=== PATIENT | female | born 1935 | race African-American/Black ===

== ENCOUNTER 2021-02-21 20:50 | Inpatient (IN) | payer MEDICARE ==
[~2021-02-21] VITALS: Ht 154.9 cm; Wt 48.0 kg
--- NOTE | 2021-02-21 21:33 | PHYS DOC ---
General Adult EDM: Chief Complaint: HYPERTENSION HPI: HPI: Patient is an 85-year-old female who presents to the emergency department for shortness of breath and hypertension that started today. Patient reports that she was placed on a Z-Gilson today for nasal drainage. Patient is a current smoker. She reports that she has received all of her Covid vaccines. Patient reports that the symptoms have been intermittent but have resolved over the last couple of days. Patient takes amlodipine and losartan but has not been taking them but did restart them today. Patient denies vomiting, diarrhea, cough, fevers, chest pain, sick exposures, headache, vision changes, dizziness. She does not wear oxygen at home. Upon arrival patient is 89% on room air, she is placed on supplemental oxygen. Patient is noted to be hypertensive and tachycardic in the emergency department. Review of Systems: Review of Systems: 14 body systems of the review of systems have been reviewed. See HPI for pertinent positive and negative responses, otherwise all other systems are negative, nonpertinent or noncontributory Heart Score: C/O Chest Pain: No Risk Factors: Risk Factors: DM, Current or recent (<one month) smoker, HTN, HLP, family history of CAD, obesity. Risk Scores: Score 0 - 3: 2.5% MACE over next 6 weeks - Discharge Home Score 4 - 6: 20.3% MACE over next 6 weeks - Admit for Clinical Observation Score 7 - 10: 72.7% MACE over next 6 weeks - Early Invasive Strategies Current Medications: Current Medications Medications (Trade) Dose Ordered Sig/Karishma Start Time Stop Time Status Last Admin Dose Admin Nitroglycerin/ Dextrose 250 ml @ 1.5 mls/hr 1X ONCE 02/21/21 22:00 02/28/21 20:39 Allergies: Allergies: Allergies Coded Allergies Type Severity Reaction Last Updated Verified No Known Drug Allergies 02/21/21 No Physical Exam: PE: Constitutional: Well developed, well nourished, no acute distress, non-toxic appearance. [] HENT: Normocephalic, atraumatic, bilateral external ears normal, oropharynx moist, no oral exudates, nose normal. [] Eyes: PERRL, EOMI, conjunctiva normal, no discharge. [] Neck: Normal range of motion, no tenderness, supple, no stridor. [] Cardiovascular:Heart rate tachycardic rhythm, no murmur [] Lungs & Thorax: Bilateral breath sounds clear to auscultation, hypoxic, labored breathing [] Abdomen: Bowel sounds normal, soft, no tenderness, no masses, no pulsatile masses. [] Skin: Warm, dry, no erythema, no rash. [] Back: Normal range of motion Extremities: No tenderness, no cyanosis, no clubbing, ROM intact, no edema. [] Neurologic: Alert and oriented X 3, normal motor function, normal sensory function, no focal deficits noted. [] Psychologic: Affect normal, judgement normal, mood normal. [] Current Patient Data: Labs: Laboratory Tests Test 02/21/21 21:17 White Blood Count 6.5 x10^3/uL Red Blood Count 4.39 x10^6/uL Hemoglobin 12.6 g/dL Hematocrit 39.3 % Mean Corpuscular Volume 90 fL Mean Corpuscular Hemoglobin 29 pg Mean Corpuscular Hemoglobin Concent 32 g/dL Red Cell Distribution Width 13.4 % Platelet Count 222 x10^3/uL Neutrophils (%) (Auto) 30 % Lymphocytes (%) (Auto) 60 % Monocytes (%) (Auto) 8 % Eosinophils (%) (Auto) 2 % Basophils (%) (Auto) 1 % Neutrophils # (Auto) 1.9 x10^3/uL Lymphocytes # (Auto) 3.9 x10^3/uL Monocytes # (Auto) 0.5 x10^3/uL Eosinophils # (Auto) 0.1 x10^3/uL Basophils # (Auto) 0.1 x10^3/uL Segmented Neutrophils % 30 % Lymphocytes % 62 % Atypical Lymphocytes % (Manual) 7 % Monocytes % 1 % Platelet Estimate Adequate Sodium Level 141 mmol/L Potassium Level 3.6 mmol/L Chloride Level 106 mmol/L Carbon Dioxide Level 21 mmol/L Anion Gap 14 Blood Urea Nitrogen 30 mg/dL Creatinine 2.6 mg/dL Estimated GFR (Cockcroft-Gault) 21.3 BUN/Creatinine Ratio 12 Glucose Level 140 mg/dL Calcium Level 9.1 mg/dL Total Bilirubin 0.5 mg/dL Aspartate Amino Transf (AST/SGOT) 24 U/L Alanine Aminotransferase (ALT/SGPT) 31 U/L Alkaline Phosphatase 119 U/L Troponin I High Sensitivity 80 ng/L Total Protein 7.8 g/dL Albumin 3.9 g/dL Albumin/Globulin Ratio 1.0 Current Medications Medications (Trade) Dose Ordered Sig/Karishma Route PRN Reason Start Time Stop Time Status Last Admin Dose Admin Nitroglycerin/ Dextrose 250 ml @ 1.5 mls/hr 1X ONCE IV 02/21/21 22:00 02/28/21 20:39 Nitroglycerin (Nitrostat) 0.4 mg STK-MED ONCE SL 02/21/21 21:34 02/21/21 21:34 DC Nitroglycerin (Nitrostat) 0.4 mg PRN Q5MIN PRN SL CHEST PAIN 02/21/21 22:00 02/21/21 20:40 EKG: EKG: EKG performed by ER staff at 2131 shows sinus tachycardia with a heart rate of 115 with PVCs, no STEMI read by Dr. Young 2139[] Radiology/Procedures: Radiology/Procedures: []PROCEDURE: PORTABLE CHEST 1V EXAMINATION: Chest radiograph. VIEWS: Single AP view of the chest COMPARISON: None INDICATION:85 years, Female, shortness of air. FINDINGS: Heart size is mildly enlarged. There are scattered and confluent predominantly middle and lower lobe airspace opacities with increased reticular markings. Trace bilateral pleural effusions. No pneumothorax. No acute osseous process. IMPRESSION: Findings may represent interstitial/alveolar pulmonary edema versus multifocal pneumonia with probable trace bilateral pleural effusions. Electronically signed by: Amarjit Conte DO (02/21/2021 10:10 PM) [facility] DICTATED and SIGNED BY: AMARJIT CONTE DO DATE: 02/21/21 [id number] 0 Course & Med Decision Making: Course & Med Decision Making Pertinent Labs and Imaging studies reviewed. (See chart for details) [] Patient presents to the emergency department for shortness of breath and elevated blood pressure in the ER. Patient is noted to be hypoxic in the ER, 89% on room air, she is placed on supplemental oxygen. She is noted to be hypertensive and tachycardic in the ER. Nitroglycerin infusion ordered for patient's hypertension. Work-up in the ER consisted of blood work, EKG, chest x-ray. CBC unremarkable. Patient was noted to have elevated BUN and creatinine. Her troponin was 80. Chest x-ray showed pulmonary edema versus pneumonia with trace pleural effusions. Patient was given sublingual nitroglycerin and started on a nitro infusion and to decrease patient's blood pressure by 25%. Patients blood pressure is reacting appropriately to nitroglycerin infusion and has become stabilized at this point. Patients work of breathing and tachycardia has improved. This is currently being titrated in the ER. Patient also placed on BiPAP. I discussed patient's findings with her and her son and they are both agreeable to care plan. I discussed patient's findings with her primary care provider Dr. Amanda who agreed to admit the patient under his services with cardiology and pulmonology consults. ER bridge orders placed. 1048. Tricia Disclaimer: Tricia Disclaimer: This electronic medical record was generated, in whole or in part, using a voice recognition dictation system. Departure Departure Impression: Primary Impression: Pulmonary edema Qualified Codes: J81.0 - Acute pulmonary edema Additional Impression: Hypertension Qualified Codes: I10 - Essential (primary) hypertension Disposition: 09 ADMITTED INPATIENT Admitting Physician: Cj Munoz Condition: STABLE JENNA OLIVARES [employer] Feb 21, 2021 21:33
[2021-02-21] MEDS ORDERED: NITROGLYCERIN SUBLINGUAL 0.4 MG BOTTLE OF 25. SL ONE (21:34)
[2021-02-21 21:39] LABS: BASO # 0.1 x10^3/uL (0.0-0.2); BASO % 1 % (0-3); EOS # 0.1 x10^3/uL (0.0-0.7); EOS % 2 % (0-3); HEMATOCRIT 39.3 % (36.0-47.0); HEMOGLOBIN 12.6 g/dL (12.0-15.5); LYMPH # 3.9 x10^3/uL (1.0-4.8); LYMPH % 60 % (24-48); MEAN CORPUSCULAR HEMOGLOBIN 29 pg (25-35); MEAN CORPUSCULAR HGB CONC 32 g/dL (31-37); MEAN CORPUSCULAR VOLUME 90 fL (79-100); MONO # 0.5 x10^3/uL (0.0-1.1); MONO % 8 % (0-9); NEUT # 1.9 x10^3/uL (1.8-7.7); NEUT % 30 % (31-73); PLATELET COUNT 222 x10^3/uL (140-400); RED BLOOD COUNT 4.39 x10^6/uL (3.50-5.40); RED CELL DISTRIBUTION WIDTH 13.4 % (11.5-14.5); WHITE BLOOD COUNT 6.5 x10^3/uL (4.0-11.0)
[2021-02-21 21:42] LABS: CALCIUM 9.1 mg/dL (8.5-10.1); CREATININE 2.6 mg/dL (0.6-1.0); GFR 21.3; POTASSIUM 3.6 mmol/L (3.5-5.1)
[2021-02-21 21:48] LABS: ALBUMIN 3.9 g/dL (3.4-5.0); TOTAL BILIRUBIN 0.5 mg/dL (0.2-1.0); TOTAL PROTEIN 7.8 g/dL (6.4-8.2)
[2021-02-21] MEDS ORDERED: NITROGLYCERIN SUBLINGUAL 0.4 MG BOTTLE OF 25. SL PRN (22:00)
[2021-02-21] MEDS ORDERED: NITROGLYCERIN PREMIX 250 ML IV ONE (22:00)
[2021-02-21 22:02] LABS: % ATYL 7 % (0-0); % LYMPHS 62 % (24-48); % MONOS 1 % (0-10); % SEGS 30 % (35-66); PLT ESTIMATE ADEQUATE (ADEQUATE)
--- NOTE | 2021-02-21 22:12 | RAD ---
EXAMINATION: Chest radiograph. VIEWS: Single AP view of the chest COMPARISON: None INDICATION:85 years, Female, shortness of air. FINDINGS: Heart size is mildly enlarged. There are scattered and confluent predominantly middle and lower lobe airspace opacities with increased reticular markings. Trace bilateral pleural effusions. No pneumotho rax. No acute osseous process. IMPRESSION: Findings may represent interstitial/alveolar pulmonary edema versus multifocal pneumonia with probabl e trace bilateral pleural effusions. Electronically signed by: Robbie Conte DO (02/21/2021 10:10 PM) COUNTS INCLUDE 234 BEDS AT THE [facility]
--- NOTE | 2021-02-21 22:16 | EKG ---
[facility] [address] [place] [address] Test Date: 2021-02-21 Test Time: 21:32:10 Pat Name: NORRIS ASHFORD Department: Room: Gender: F Manager Scheduling: : 1935 Requested By: JENNA OLIVARES Order Number: [id number] Reading MD: Aamir Larose Measurements Intervals [place] Rate: 115 P: 49 PA: 112 QRS: 24 QRSD: 80 T: 20 QT: 282 QTc: 392 Interpretive Statements SINUS TACHYCARDIA COMPLEX(ES) WITH ABERRANT INTRAVENTRICULAR CONDUCTION LEFT ATRIAL ABNORMALITY ST & T ABNORMALITY, CONSIDER ANTEROLATERAL ISCHEMIA OR LEFT VENTRICULAR STRAIN ABNORMAL ECG RI6.02 No previous ECG available for comparison Electronically Signed On 02-25-2021 9:25:22 KILN LOADER by Aamir Larose
[2021-02-22] VITALS (13 sets, daily range): BP systolic 92–175; BP diastolic 55–111
[2021-02-22 00:47] LABS: BILIRUBIN,URINE NEGATIVE (NEG); CLARITY,URINE CLEAR; COLOR,URINE YELLOW; NITRITE,URINE NEGATIVE (NEG); PH,URINE 5.5 (<5.0-8.0); PROTEIN,URINE >=300 mg/dL (NEG-TRACE)
[2021-02-22 00:54] LABS: BACTERIA,URINE FEW /HPF (0-FEW)
[2021-02-22] MEDS ORDERED: FUROSEMIDE 40 MG/4 ML VIAL. IVP ONE ×2 (02:15→08:00)
[2021-02-22 03:21] LABS: BASO # 0.1 x10^3/uL (0.0-0.2); BASO % 1 % (0-3); EOS % 1 % (0-3); HEMATOCRIT 39.4 % (36.0-47.0); HEMOGLOBIN 12.6 g/dL (12.0-15.5); LYMPH # 2.4 x10^3/uL (1.0-4.8); LYMPH % 37 % (24-48); MEAN CORPUSCULAR HEMOGLOBIN 29 pg (25-35); MEAN CORPUSCULAR HGB CONC 32 g/dL (31-37); MEAN CORPUSCULAR VOLUME 91 fL (79-100); MONO # 0.5 x10^3/uL (0.0-1.1); MONO % 8 % (0-9); NEUT # 3.6 x10^3/uL (1.8-7.7); NEUT % 54 % (31-73); PLATELET COUNT 201 x10^3/uL (140-400); RED BLOOD COUNT 4.34 x10^6/uL (3.50-5.40); RED CELL DISTRIBUTION WIDTH 13.9 % (11.5-14.5); WHITE BLOOD COUNT 6.6 x10^3/uL (4.0-11.0)
[2021-02-22 03:43] LABS: ALBUMIN 3.5 g/dL (3.4-5.0); ALBUMIN/GLOBULIN RATIO 0.9 (1.0-1.7); CREATININE 2.3 mg/dL (0.6-1.0); GFR 24.5; POTASSIUM 3.9 mmol/L (3.5-5.1); TOTAL BILIRUBIN 0.5 mg/dL (0.2-1.0); TOTAL PROTEIN 7.3 g/dL (6.4-8.2)
--- NOTE | 2021-02-22 08:02 | PDOC2 ---
MINOO GARCIA FREIGHT ADJUSTER 02/22/21 0802: CARDIAC CONSULT DATE OF CONSULT Date of Consult DATE: 02/22/21 TIME: 07:42 REASON FOR CONSULT Reason for Consult: Pulmonary edema, HTN REFERRING PHYSICIAN Referring Physician: Tremayne SOURCE Source: Chart review, Patient HISTORY OF PRESENT ILLNESS HISTORY OF PRESENT ILLNESS This is a pleasant 85 yo female admitted for complains of SOA. and high BP. She noted her SBP in the 200s at home. She has not been taking her 2 BP meds namely losartan and norvasc daily since her daughter from [place] 3 months ago. She is depress but no suicidal ideation and doink OK but still has moments of grief. No chest pain. She has been SOA and more with exertion in the last 3 d ays. Denies any nausea, vomiting, DOMINGUEZ or any visual disturbances. She does have occasional palpitations but no hx of CAD, arrhythmias. VTE, CVA. She does not take ASA. No leg edema. PAST MEDICAL HISTORY Cardiovascular: HTN Pulmonary: No pertinent hx CENTRAL NERVOUS SYSTEM: Other (No pertinent history) GI: No pertinent hx Heme/Onc: No pertinent hx Hepatobiliary: No pertinent hx Psych: No pertinent hx Musculoskeletal: Osteoarthritis Infectious disease: No pertinent hx ENT: No pertinent hx Renal/: Chronic renal insuff Endocrine: No pertinent hx Dermatology: No pertinent hx PAST SURGICAL HISTORY Past Surgical History: No pertinent history FAMILY HISTORY Family History: Heart Disease (sister) SOCIAL HISTORY Smoke: <1 pack per day ALCOHOL: none Drugs: None Lives: with Family CURRENT MEDICATIONS CURRENT MEDICATIONS Current Medications Medications (Trade) Dose Ordered Sig/Karishma Route PRN Reason Start Time Stop Time Status Last Admin Dose Admin Nitroglycerin (Nitrostat) 0.4 mg PRN Q5MIN PRN SL CHEST PAIN 02/21/21 22:00 02/21/21 20:40 Furosemide (Lasix) 40 mg 1X ONCE IVP 02/22/21 02:15 02/22/21 02:16 DC 02/22/21 02:12 Amlodipine Besylate (Norvasc) 5 mg 1X ONCE PO 02/22/21 02:15 02/22/21 02:16 DC 02/22/21 02:13 Amlodipine Besylate (Norvasc) 5 mg DAILY PO 02/22/21 09:00 02/22/21 07:38 Amlodipine Besylate (Norvasc) 5 mg 1X ONCE PO 02/22/21 04:00 02/22/21 04:02 DC 02/22/21 03:58 ALLERGIES ALLERGIES: Coded Allergies: No Known Drug Allergies (Unverified , 02/21/21) ROS Review of System 14 point ROS evaluated with pertinent positives noted per HPI PHYSICAL EXAM General: Alert, Oriented X3, Cooperative, No acute distress HEENT: Atraumatic, Mucous membr. moist/pink Lungs: Other (diminished bases) Heart: Regular rate (SR/ST with PVCs), Normal S1, Normal S2, No murmurs Abdomen: Soft, No tenderness Extremities: No cyanosis, No edema Skin: No breakdown, No significant lesion Neuro: Normal speech, Sensation intact Psych/Mental Status: Mental status NL, Mood NL MUSCULOSKELETAL: Osteoarthritic changes both hands VITALS/I&O VITALS/I&O: Vital Signs Date Time Temp Pulse Resp B/P (MAP) Pulse Ox O2 Delivery O2 Flow Rate FiO2 02/22/21 07:38 94 160/100 02/22/21 07:00 15 95 Nasal Cannula 2.0 02/22/21 04:00 98.1 98.1 I & O 02/21/21 02/21/21 02/22/21 15:00 23:00 07:00 Output Total 360 ml Balance -360 ml LABS Lab: Laboratory Tests Test 02/21/21 21:17 02/22/21 00:40 02/22/21 03:05 White Blood Count 6.5 x10^3/uL (4.0-11.0) 6.6 x10^3/uL (4.0-11.0) Red Blood Count 4.39 x10^6/uL (3.50-5.40) 4.34 x10^6/uL (3.50-5.40) Hemoglobin 12.6 g/dL (12.0-15.5) 12.6 g/dL (12.0-15.5) Hematocrit 39.3 % (36.0-47.0) 39.4 % (36.0-47.0) Mean Corpuscular Volume 90 fL (79-100) 91 fL (79-100) Mean Corpuscular Hemoglobin 29 pg (25-35) 29 pg (25-35) Mean Corpuscular Hemoglobin Concent 32 g/dL (31-37) 32 g/dL (31-37) Red Cell Distribution Width 13.4 % (11.5-14.5) 13.9 % (11.5-14.5) Platelet Count 222 x10^3/uL (140-400) 201 x10^3/uL (140-400) Neutrophils (%) (Auto) 30 % (31-73) L 54 % (31-73) Lymphocytes (%) (Auto) 60 % (24-48) H 37 % (24-48) Monocytes (%) (Auto) 8 % (0-9) 8 % (0-9) Eosinophils (%) (Auto) 2 % (0-3) 1 % (0-3) Basophils (%) (Auto) 1 % (0-3) 1 % (0-3) Neutrophils # (Auto) 1.9 x10^3/uL (1.8-7.7) 3.6 x10^3/uL (1.8-7.7) Lymphocytes # (Auto) 3.9 x10^3/uL (1.0-4.8) 2.4 x10^3/uL (1.0-4.8) Monocytes # (Auto) 0.5 x10^3/uL (0.0-1.1) 0.5 x10^3/uL (0.0-1.1) Eosinophils # (Auto) 0.1 x10^3/uL (0.0-0.7) 0.0 x10^3/uL (0.0-0.7) Basophils # (Auto) 0.1 x10^3/uL (0.0-0.2) 0.1 x10^3/uL (0.0-0.2) Segmented Neutrophils % 30 % (35-66) L Lymphocytes % 62 % (24-48) H Atypical Lymphocytes % (Manual) 7 % (0-0) H Monocytes % 1 % (0-10) Platelet Estimate Adequate (ADEQUATE) Sodium Level 141 mmol/L (136-145) 142 mmol/L (136-145) Potassium Level 3.6 mmol/L (3.5-5.1) 3.9 mmol/L (3.5-5.1) Chloride Level 106 mmol/L (98-107) 107 mmol/L (98-107) Carbon Dioxide Level 21 mmol/L (21-32) 20 mmol/L (21-32) L Anion Gap 14 (6-14) 15 (6-14) H Blood Urea Nitrogen 30 mg/dL (7-20) H 28 mg/dL (7-20) H Creatinine 2.6 mg/dL (0.6-1.0) H 2.3 mg/dL (0.6-1.0) H Estimated GFR (Cockcroft-Gault) 21.3 24.5 BUN/Creatinine Ratio 12 (6-20) 12 (6-20) Glucose Level 140 mg/dL (70-99) H 126 mg/dL (70-99) H Calcium Level 9.1 mg/dL (8.5-10.1) 9.0 mg/dL (8.5-10.1) Total Bilirubin 0.5 mg/dL (0.2-1.0) 0.5 mg/dL (0.2-1.0) Aspartate Amino Transferase (AST) 24 U/L (15-37) 24 U/L (15-37) Alanine Aminotransferase (ALT) 31 U/L (14-59) 24 U/L (14-59) Alkaline Phosphatase 119 U/L (46-116) H 109 U/L (46-116) Troponin I High Sensitivity 80 ng/L (4-50) H XC-Csa-K-Type Natriuretic Peptide 63860 pg/mL (0-449) H Total Protein 7.8 g/dL (6.4-8.2) 7.3 g/dL (6.4-8.2) Albumin 3.9 g/dL (3.4-5.0) 3.5 g/dL (3.4-5.0) Albumin/Globulin Ratio 1.0 (1.0-1.7) 0.9 (1.0-1.7) L Urine Collection Type Unknown Urine Color Yellow Urine Clarity Clear Urine pH 5.5 (<5.0-8.0) Urine Specific [place] 1.020 (1.000-1.030) Urine Protein >=300 mg/dL (NEG-TRACE) Urine Glucose (UA) Negative mg/dL (NEG) Urine Ketones (Stick) Negative mg/dL (NEG) Urine Blood Small (NEG) Urine Nitrite Negative (NEG) Urine Bilirubin Negative (NEG) Urine Urobilinogen Dipstick 1.0 mg/dL (0.2 mg/dL) Urine Leukocyte Esterase Small (NEG) Urine RBC 1-2 /HPF (0-2) Urine WBC 5-10 /HPF (0-4) Urine Squamous Epithelial Cells Mod /LPF Urine Bacteria Few /HPF (0-FEW) Urine Mucus Slight /LPF Laboratory Tests 02/21/21 21:17 02/22/21 03:05 Laboratory Tests 02/21/21 21:17 02/22/21 03:05 ASSESSMENT/PLAN ASSESSMENT/PLAN 1. Acute CHF with possible diastolic dysfunction: due to uncontrolled HTN 2. Malignant HTN 3. RAMON on CKD: unknown baseline 4. Depression: per PCP 5. Tobaccoism 6. Mild trop elevation: suspect demand mediated, type 2 due to CHF and HTN 7. PVCs Recommendations 1. Titrate off NTG. Start on norvasc and coreg. No losartan with RAMON 2. Start on ASA. Check FLP and will start statin per level 3. Lasix therapy 4. TTE, check Mg and TSH 5. Smoking cessation UMA CRISOSTOMO MD 02/22/21 1632: CARDIAC CONSULT ASSESSMENT/PLAN ASSESSMENT/PLAN Patient seen and examined. Agree with above nurse practitioner note. 85-year-old woman presenting with cardiomyopathy and acute on chronic systolic and diastolic heart failure Case discussed with her family extensively. We will plan for continued medical therapy in light of her renal failure. Outpatient ischemic testing with consideration of cardiac catheterization based on goals of care and recovery of LV function with medical therapy MINOO GARCIA APRN Feb 22, 2021 08:02 UMA CRISOSTOMO MD Feb 22, 2021 16:32
--- NOTE | 2021-02-22 08:15 | PDOC ---
PULMONARY PROGRESS NOTES DATE: 02/22/21 TIME: 08:15 Vitals Vital Signs Date Time Temp Pulse Resp B/P (MAP) Pulse Ox O2 Delivery O2 Flow Rate FiO2 02/22/21 08:00 Nasal Cannula 2.0 02/22/21 07:38 94 160/100 02/22/21 07:00 15 95 02/22/21 04:00 98.1 98.1 Labs Laboratory Tests Test 02/21/21 21:17 02/22/21 00:40 02/22/21 03:05 White Blood Count 6.5 x10^3/uL (4.0-11.0) 6.6 x10^3/uL (4.0-11.0) Red Blood Count 4.39 x10^6/uL (3.50-5.40) 4.34 x10^6/uL (3.50-5.40) Hemoglobin 12.6 g/dL (12.0-15.5) 12.6 g/dL (12.0-15.5) Hematocrit 39.3 % (36.0-47.0) 39.4 % (36.0-47.0) Mean Corpuscular Volume 90 fL (79-100) 91 fL (79-100) Mean Corpuscular Hemoglobin 29 pg (25-35) 29 pg (25-35) Mean Corpuscular Hemoglobin Concent 32 g/dL (31-37) 32 g/dL (31-37) Red Cell Distribution Width 13.4 % (11.5-14.5) 13.9 % (11.5-14.5) Platelet Count 222 x10^3/uL (140-400) 201 x10^3/uL (140-400) Neutrophils (%) (Auto) 30 % (31-73) 54 % (31-73) Lymphocytes (%) (Auto) 60 % (24-48) 37 % (24-48) Monocytes (%) (Auto) 8 % (0-9) 8 % (0-9) Eosinophils (%) (Auto) 2 % (0-3) 1 % (0-3) Basophils (%) (Auto) 1 % (0-3) 1 % (0-3) Neutrophils # (Auto) 1.9 x10^3/uL (1.8-7.7) 3.6 x10^3/uL (1.8-7.7) Lymphocytes # (Auto) 3.9 x10^3/uL (1.0-4.8) 2.4 x10^3/uL (1.0-4.8) Monocytes # (Auto) 0.5 x10^3/uL (0.0-1.1) 0.5 x10^3/uL (0.0-1.1) Eosinophils # (Auto) 0.1 x10^3/uL (0.0-0.7) 0.0 x10^3/uL (0.0-0.7) Basophils # (Auto) 0.1 x10^3/uL (0.0-0.2) 0.1 x10^3/uL (0.0-0.2) Segmented Neutrophils % 30 % (35-66) Lymphocytes % 62 % (24-48) Atypical Lymphocytes % (Manual) 7 % (0-0) Monocytes % 1 % (0-10) Platelet Estimate Adequate (ADEQUATE) Sodium Level 141 mmol/L (136-145) 142 mmol/L (136-145) Potassium Level 3.6 mmol/L (3.5-5.1) 3.9 mmol/L (3.5-5.1) Chloride Level 106 mmol/L (98-107) 107 mmol/L (98-107) Carbon Dioxide Level 21 mmol/L (21-32) 20 mmol/L (21-32) Anion Gap 14 (6-14) 15 (6-14) Blood Urea Nitrogen 30 mg/dL (7-20) 28 mg/dL (7-20) Creatinine 2.6 mg/dL (0.6-1.0) 2.3 mg/dL (0.6-1.0) Estimated GFR (Cockcroft-Gault) 21.3 24.5 BUN/Creatinine Ratio 12 (6-20) 12 (6-20) Glucose Level 140 mg/dL (70-99) 126 mg/dL (70-99) Calcium Level 9.1 mg/dL (8.5-10.1) 9.0 mg/dL (8.5-10.1) Total Bilirubin 0.5 mg/dL (0.2-1.0) 0.5 mg/dL (0.2-1.0) Aspartate Amino Transf (AST/SGOT) 24 U/L (15-37) 24 U/L (15-37) Alanine Aminotransferase (ALT/SGPT) 31 U/L (14-59) 24 U/L (14-59) Alkaline Phosphatase 119 U/L (46-116) 109 U/L (46-116) Troponin I High Sensitivity 80 ng/L (4-50) ED-Imr-F-Type Natriuretic Peptide 31163 pg/mL (0-449) Total Protein 7.8 g/dL (6.4-8.2) 7.3 g/dL (6.4-8.2) Albumin 3.9 g/dL (3.4-5.0) 3.5 g/dL (3.4-5.0) Albumin/Globulin Ratio 1.0 (1.0-1.7) 0.9 (1.0-1.7) Urine Collection Type Unknown Urine Color Yellow Urine Clarity Clear Urine pH 5.5 (<5.0-8.0) Urine Specific [place] 1.020 (1.000-1.030) Urine Protein >=300 mg/dL (NEG-TRACE) Urine Glucose (UA) Negative mg/dL (NEG) Urine Ketones (Stick) Negative mg/dL (NEG) Urine Blood Small (NEG) Urine Nitrite Negative (NEG) Urine Bilirubin Negative (NEG) Urine Urobilinogen Dipstick 1.0 mg/dL (0.2 mg/dL) Urine Leukocyte Esterase Small (NEG) Urine RBC 1-2 /HPF (0-2) Urine WBC 5-10 /HPF (0-4) Urine Squamous Epithelial Cells Mod /LPF Urine Bacteria Few /HPF (0-FEW) Urine Mucus Slight /LPF Laboratory Tests Test 02/21/21 21:17 02/22/21 00:40 02/22/21 03:05 White Blood Count 6.5 x10^3/uL (4.0-11.0) 6.6 x10^3/uL (4.0-11.0) Red Blood Count 4.39 x10^6/uL (3.50-5.40) 4.34 x10^6/uL (3.50-5.40) Hemoglobin 12.6 g/dL (12.0-15.5) 12.6 g/dL (12.0-15.5) Hematocrit 39.3 % (36.0-47.0) 39.4 % (36.0-47.0) Mean Corpuscular Volume 90 fL (79-100) 91 fL (79-100) Mean Corpuscular Hemoglobin 29 pg (25-35) 29 pg (25-35) Mean Corpuscular Hemoglobin Concent 32 g/dL (31-37) 32 g/dL (31-37) Red Cell Distribution Width 13.4 % (11.5-14.5) 13.9 % (11.5-14.5) Platelet Count 222 x10^3/uL (140-400) 201 x10^3/uL (140-400) Neutrophils (%) (Auto) 30 % (31-73) 54 % (31-73) Lymphocytes (%) (Auto) 60 % (24-48) 37 % (24-48) Monocytes (%) (Auto) 8 % (0-9) 8 % (0-9) Eosinophils (%) (Auto) 2 % (0-3) 1 % (0-3) Basophils (%) (Auto) 1 % (0-3) 1 % (0-3) Neutrophils # (Auto) 1.9 x10^3/uL (1.8-7.7) 3.6 x10^3/uL (1.8-7.7) Lymphocytes # (Auto) 3.9 x10^3/uL (1.0-4.8) 2.4 x10^3/uL (1.0-4.8) Monocytes # (Auto) 0.5 x10^3/uL (0.0-1.1) 0.5 x10^3/uL (0.0-1.1) Eosinophils # (Auto) 0.1 x10^3/uL (0.0-0.7) 0.0 x10^3/uL (0.0-0.7) Basophils # (Auto) 0.1 x10^3/uL (0.0-0.2) 0.1 x10^3/uL (0.0-0.2) Segmented Neutrophils % 30 % (35-66) Lymphocytes % 62 % (24-48) Atypical Lymphocytes % (Manual) 7 % (0-0) Monocytes % 1 % (0-10) Platelet Estimate Adequate (ADEQUATE) Sodium Level 141 mmol/L (136-145) 142 mmol/L (136-145) Potassium Level 3.6 mmol/L (3.5-5.1) 3.9 mmol/L (3.5-5.1) Chloride Level 106 mmol/L (98-107) 107 mmol/L (98-107) Carbon Dioxide Level 21 mmol/L (21-32) 20 mmol/L (21-32) Anion Gap 14 (6-14) 15 (6-14) Blood Urea Nitrogen 30 mg/dL (7-20) 28 mg/dL (7-20) Creatinine 2.6 mg/dL (0.6-1.0) 2.3 mg/dL (0.6-1.0) Estimated GFR (Cockcroft-Gault) 21.3 24.5 BUN/Creatinine Ratio 12 (6-20) 12 (6-20) Glucose Level 140 mg/dL (70-99) 126 mg/dL (70-99) Calcium Level 9.1 mg/dL (8.5-10.1) 9.0 mg/dL (8.5-10.1) Total Bilirubin 0.5 mg/dL (0.2-1.0) 0.5 mg/dL (0.2-1.0) Aspartate Amino Transf (AST/SGOT) 24 U/L (15-37) 24 U/L (15-37) Alanine Aminotransferase (ALT/SGPT) 31 U/L (14-59) 24 U/L (14-59) Alkaline Phosphatase 119 U/L (46-116) 109 U/L (46-116) Troponin I High Sensitivity 80 ng/L (4-50) HQ-Qtn-H-Type Natriuretic Peptide 61974 pg/mL (0-449) Total Protein 7.8 g/dL (6.4-8.2) 7.3 g/dL (6.4-8.2) Albumin 3.9 g/dL (3.4-5.0) 3.5 g/dL (3.4-5.0) Albumin/Globulin Ratio 1.0 (1.0-1.7) 0.9 (1.0-1.7) Urine Collection Type Unknown Urine Color Yellow Urine Clarity Clear Urine pH 5.5 (<5.0-8.0) Urine Specific [place] 1.020 (1.000-1.030) Urine Protein >=300 mg/dL (NEG-TRACE) Urine Glucose (UA) Negative mg/dL (NEG) Urine Ketones (Stick) Negative mg/dL (NEG) Urine Blood Small (NEG) Urine Nitrite Negative (NEG) Urine Bilirubin Negative (NEG) Urine Urobilinogen Dipstick 1.0 mg/dL (0.2 mg/dL) Urine Leukocyte Esterase Small (NEG) Urine RBC 1-2 /HPF (0-2) Urine WBC 5-10 /HPF (0-4) Urine Squamous Epithelial Cells Mod /LPF Urine Bacteria Few /HPF (0-FEW) Urine Mucus Slight /LPF Impression . Full consult dictated Acute hypoxemic respiratory failure secondary to acute pulmonary edema secondary to uncontrolled hypertension Tobacco dependent Depression COPD plan see orders CARLOS NEWELL MD Feb 22, 2021 08:15
[2021-02-22] MEDS: ASPIRIN ENTERIC COATED 81 MG TABLET.DR. PO SCH (08:29)
[2021-02-22] MEDS: CARVEDILOL 6.25 MG TABLET. PO SCH ×2 (08:29→18:18)
[2021-02-22 08:35] LABS: CHOLESTEROL/HDL RATIO 2.8
--- NOTE | 2021-02-22 09:22 | EKG ---
[facility] [address] [place] [address] Test Date: 2021-02-22 Test Time: 09:20:39 Pat Name: NORRIS ASHFORD Department: Room: 111 1 Gender: F Cytopathology Technologist: CATHI : [id number] Requested By: MINOO GARCIA Order Number: [id number] Reading MD: Aamir Larose Measurements Intervals Hazel Rate: 98 P: 48 AL: 108 QRS: 9 QRSD: 86 T: -66 QT: 392 QTc: 503 Interpretive Statements SINUS RHYTHM VENTRICULAR PREMATURE COMPLEX(ES), TRIGEMINY LEFT ATRIAL ABNORMALITY T ABNORMALITY IN ANTERIOR LEADS INFEROLATERAL LEADS PROLONGED QT ABNORMAL ECG RI6.02 Electronically Signed On 02-25-2021 9:23:03 [employer] by Aamir Larose
--- NOTE | 2021-02-22 09:27 | PDOC ---
Provider Note Date of Service: DATE: 02/22/21 TIME: 09:26 Provider Note Pt seen ICU .#[id number]. Justifications for Admission Other Justification YARELI ARCE MD Feb 22, 2021 09:27
--- NOTE | 2021-02-22 09:49 | PDOC2 ---
CONSULT Date of Consult Date of Consult DATE: 02/22/21 TIME: 09:42 Reason for Consult Reason for Consult: RAMON on CKD Identification/Chief Complaint Chief Complaint Denies any complaints at present Source Source: Chart review History of Present Illness Reason for Visit: 85 yo AA female admitted for complains of SOA. and high BP. She noted her SBP in the 200s at home. She has not been taking her 2 BP meds namely losartan and norvasc daily. She reportsher BP used to be well controlled but have been high since her daughter from [place] 3 months ago. Denies any chest pain, she has been short of breath - more with exertion in the last 3 days. Denies any nausea, vomiting, DOMINGUEZ or any visual disturbances. Denies any F/C. No N/V/D. No abdominal pain. No Cough. Denies any urinary complaints, No dysuria, reports Good UOP. Denies any LE edema . Denies use of NSAID's or any OTC supplements. She reports for past 3 months - her PCP Dr. Munoz has been adjusting er BP meds . She has been on losartan on and off . She has been on diurtics as well but cannot recall the time line . She states she is not aware of abnormal Kidney function and doesn't recall being referred to nephrology for OP appt Past Medical History Cardiovascular: HTN Pulmonary: No pertinent hx CENTRAL NERVOUS SYSTEM: Other (No pertinent history) GI: No pertinent hx Heme/Onc: No pertinent hx Hepatobiliary: No pertinent hx Psych: No pertinent hx Musculoskeletal: Osteoarthritis Infectious disease: No pertinent hx ENT: No pertinent hx Renal/: Chronic renal insuff Endocrine: No pertinent hx Dermatology: No pertinent hx Past Surgical History Past Surgical History: No pertinent history Family History Family History: Heart Disease (sister) Social History <1 pack per day ALCOHOL: none Drugs: None Lives: with Family Current Problem List Problem List Problems Medical Problems: (1) Hypertension Status: Acute (2) Pulmonary edema Status: Acute Current Medications Current Medications Current Medications Nitroglycerin/ Dextrose 250 ml @ 1.5 mls/hr 1X ONCE IV ; Start 02/21/21 at 22:00; Stop 02/28/21 at 20:39 Nitroglycerin (Nitrostat) 0.4 mg STK-MED ONCE SL ; Start 02/21/21 at 21:34; Stop 02/21/21 at 21:34; Status DC Nitroglycerin (Nitrostat) 0.4 mg PRN Q5MIN PRN SL CHEST PAIN Last administered on 02/21/21at 20:40; Start 02/21/21 at 22:00 Furosemide (Lasix) 40 mg 1X ONCE IVP Last administered on 02/22/21at 02:12; Start 02/22/21 at 02:15; Stop 02/22/21 at 02:16; Status DC Amlodipine Besylate (Norvasc) 5 mg 1X ONCE PO Last administered on 02/22/21at 02:13; Start 02/22/21 at 02:15; Stop 02/22/21 at 02:16; Status DC Amlodipine Besylate (Norvasc) 5 mg DAILY PO Last administered on 02/22/21at 07:38; Start 02/22/21 at 09:00; Stop 02/22/21 at 08:09; Status DC Amlodipine Besylate (Norvasc) 5 mg 1X ONCE PO Last administered on 02/22/21at 03:58; Start 02/22/21 at 04:00; Stop 02/22/21 at 04:02; Status DC Furosemide (Lasix) 40 mg 1X ONCE IVP Last administered on 02/22/21at 08:30; Start 02/22/21 at 08:00; Stop 02/22/21 at 08:01; Status DC Aspirin (Ecotrin) 81 mg DAILYWBKFT PO Last administered on 02/22/21at 08:29; Start 02/22/21 at 08:00 Amlodipine Besylate (Norvasc) 5 mg 1X ONCE PO Last administered on 02/22/21at 08:29; Start 02/22/21 at 08:00; Stop 02/22/21 at 08:01; Status DC Amlodipine Besylate (Norvasc) 10 mg DAILY PO ; Start 02/23/21 at 09:00 Carvedilol (Coreg) 6.25 mg BIDWMEALS PO Last administered on 02/22/21at 08:29; Start 02/22/21 at 08:00 Atorvastatin Calcium (Lipitor) 20 mg QHS PO ; Start 02/22/21 at 21:00 Heparin Sodium (Porcine) (Heparin Sodium) 5,000 unit Q12HR SQ ; Start 02/22/21 at 09:15 Allergies Allergies: Coded Allergies: No Known Drug Allergies (Unverified , 02/21/21) ROS Review of System As per HPI, rest of the ROS is negative Physical Exam Physical Exam General: No acute distress HEENT: Atraumatic, Mucous membr. moist/pink Neck Supple Lungs: Other (diminished bases), Non labored Heart: Regular rate (SR/ST with PVCs), Normal S1, Normal S2, No murmurs Abdomen: Soft, No tenderness Extremities: No cyanosis, No edema Skin: No breakdown, No significant lesion Neuro: Normal speech, Sensation intact, Alert, Oriented X3, Cooperative, Psych/Mental Status: Mental status NL, Mood NL No gil, No CVA or SP tenderness Vital Signs Vital Signs Date Time Temp Pulse Resp B/P (MAP) Pulse Ox O2 Delivery O2 Flow Rate FiO2 02/22/21 09:00 97 11 162/111 (128) 97 Nasal Cannula 2.0 02/22/21 08:00 98.6 98.6 Assessment & Plan RAMON on CKD- Suspect cardiorenal , Non Oliguric,Recd IV Furosemide . UA unremarkable except overt proteinuria Creatinine trending down, E-Lytes stable, Currently no emergent indication for dialysis. Supportive care , Strict I/O , agree with Holding ARB CKD - Per Dr. Munoz- baseline Creat 1.8-2.0. Acute CHF with possible diastolic dysfunction: due to uncontrolled HTN- cardiology managing Malignant HTN- defer to cardiology Tobaccoism PVCs Labs Labs Laboratory Tests Test 02/21/21 21:17 02/22/21 00:40 02/22/21 03:05 White Blood Count 6.5 x10^3/uL (4.0-11.0) 6.6 x10^3/uL (4.0-11.0) Red Blood Count 4.39 x10^6/uL (3.50-5.40) 4.34 x10^6/uL (3.50-5.40) Hemoglobin 12.6 g/dL (12.0-15.5) 12.6 g/dL (12.0-15.5) Hematocrit 39.3 % (36.0-47.0) 39.4 % (36.0-47.0) Mean Corpuscular Volume 90 fL (79-100) 91 fL (79-100) Mean Corpuscular Hemoglobin 29 pg (25-35) 29 pg (25-35) Mean Corpuscular Hemoglobin Concent 32 g/dL (31-37) 32 g/dL (31-37) Red Cell Distribution Width 13.4 % (11.5-14.5) 13.9 % (11.5-14.5) Platelet Count 222 x10^3/uL (140-400) 201 x10^3/uL (140-400) Neutrophils (%) (Auto) 30 % (31-73) 54 % (31-73) Lymphocytes (%) (Auto) 60 % (24-48) 37 % (24-48) Monocytes (%) (Auto) 8 % (0-9) 8 % (0-9) Eosinophils (%) (Auto) 2 % (0-3) 1 % (0-3) Basophils (%) (Auto) 1 % (0-3) 1 % (0-3) Neutrophils # (Auto) 1.9 x10^3/uL (1.8-7.7) 3.6 x10^3/uL (1.8-7.7) Lymphocytes # (Auto) 3.9 x10^3/uL (1.0-4.8) 2.4 x10^3/uL (1.0-4.8) Monocytes # (Auto) 0.5 x10^3/uL (0.0-1.1) 0.5 x10^3/uL (0.0-1.1) Eosinophils # (Auto) 0.1 x10^3/uL (0.0-0.7) 0.0 x10^3/uL (0.0-0.7) Basophils # (Auto) 0.1 x10^3/uL (0.0-0.2) 0.1 x10^3/uL (0.0-0.2) Segmented Neutrophils % 30 % (35-66) Lymphocytes % 62 % (24-48) Atypical Lymphocytes % (Manual) 7 % (0-0) Monocytes % 1 % (0-10) Platelet Estimate Adequate (ADEQUATE) Sodium Level 141 mmol/L (136-145) 142 mmol/L (136-145) Potassium Level 3.6 mmol/L (3.5-5.1) 3.9 mmol/L (3.5-5.1) Chloride Level 106 mmol/L (98-107) 107 mmol/L (98-107) Carbon Dioxide Level 21 mmol/L (21-32) 20 mmol/L (21-32) Anion Gap 14 (6-14) 15 (6-14) Blood Urea Nitrogen 30 mg/dL (7-20) 28 mg/dL (7-20) Creatinine 2.6 mg/dL (0.6-1.0) 2.3 mg/dL (0.6-1.0) Estimated GFR (Cockcroft-Gault) 21.3 24.5 BUN/Creatinine Ratio 12 (6-20) 12 (6-20) Glucose Level 140 mg/dL (70-99) 126 mg/dL (70-99) Calcium Level 9.1 mg/dL (8.5-10.1) 9.0 mg/dL (8.5-10.1) Total Bilirubin 0.5 mg/dL (0.2-1.0) 0.5 mg/dL (0.2-1.0) Aspartate Amino Transf (AST/SGOT) 24 U/L (15-37) 24 U/L (15-37) Alanine Aminotransferase (ALT/SGPT) 31 U/L (14-59) 24 U/L (14-59) Alkaline Phosphatase 119 U/L (46-116) 109 U/L (46-116) Troponin I High Sensitivity 80 ng/L (4-50) 587 ng/L (4-50) EV-Qle-V-Type Natriuretic Peptide 34854 pg/mL (0-449) Total Protein 7.8 g/dL (6.4-8.2) 7.3 g/dL (6.4-8.2) Albumin 3.9 g/dL (3.4-5.0) 3.5 g/dL (3.4-5.0) Albumin/Globulin Ratio 1.0 (1.0-1.7) 0.9 (1.0-1.7) Urine Collection Type Unknown Urine Color Yellow Urine Clarity Clear Urine pH 5.5 (<5.0-8.0) Urine Specific [place] 1.020 (1.000-1.030) Urine Protein >=300 mg/dL (NEG-TRACE) Urine Glucose (UA) Negative mg/dL (NEG) Urine Ketones (Stick) Negative mg/dL (NEG) Urine Blood Small (NEG) Urine Nitrite Negative (NEG) Urine Bilirubin Negative (NEG) Urine Urobilinogen Dipstick 1.0 mg/dL (0.2 mg/dL) Urine Leukocyte Esterase Small (NEG) Urine RBC 1-2 /HPF (0-2) Urine WBC 5-10 /HPF (0-4) Urine Squamous Epithelial Cells Mod /LPF Urine Bacteria Few /HPF (0-FEW) Urine Mucus Slight /LPF Magnesium Level 2.3 mg/dL (1.8-2.4) Triglycerides Level 93 mg/dL (0-150) Cholesterol Level 209 mg/dL (0-200) LDL Cholesterol, Calculated 115 mg/dL (0-100) VLDL Cholesterol, Calculated 19 mg/dL (0-40) Non-HDL Cholesterol Calculated 134 mg/dL (0-129) HDL Cholesterol 75 mg/dL (40-60) Cholesterol/HDL Ratio 2.8 Thyroid Stimulating Hormone (TSH) 0.887 uIU/mL (0.358-3.74) Laboratory Tests Test 02/21/21 21:17 02/22/21 00:40 02/22/21 03:05 White Blood Count 6.5 x10^3/uL (4.0-11.0) 6.6 x10^3/uL (4.0-11.0) Red Blood Count 4.39 x10^6/uL (3.50-5.40) 4.34 x10^6/uL (3.50-5.40) Hemoglobin 12.6 g/dL (12.0-15.5) 12.6 g/dL (12.0-15.5) Hematocrit 39.3 % (36.0-47.0) 39.4 % (36.0-47.0) Mean Corpuscular Volume 90 fL (79-100) 91 fL (79-100) Mean Corpuscular Hemoglobin 29 pg (25-35) 29 pg (25-35) Mean Corpuscular Hemoglobin Concent 32 g/dL (31-37) 32 g/dL (31-37) Red Cell Distribution Width 13.4 % (11.5-14.5) 13.9 % (11.5-14.5) Platelet Count 222 x10^3/uL (140-400) 201 x10^3/uL (140-400) Neutrophils (%) (Auto) 30 % (31-73) 54 % (31-73) Lymphocytes (%) (Auto) 60 % (24-48) 37 % (24-48) Monocytes (%) (Auto) 8 % (0-9) 8 % (0-9) Eosinophils (%) (Auto) 2 % (0-3) 1 % (0-3) Basophils (%) (Auto) 1 % (0-3) 1 % (0-3) Neutrophils # (Auto) 1.9 x10^3/uL (1.8-7.7) 3.6 x10^3/uL (1.8-7.7) Lymphocytes # (Auto) 3.9 x10^3/uL (1.0-4.8) 2.4 x10^3/uL (1.0-4.8) Monocytes # (Auto) 0.5 x10^3/uL (0.0-1.1) 0.5 x10^3/uL (0.0-1.1) Eosinophils # (Auto) 0.1 x10^3/uL (0.0-0.7) 0.0 x10^3/uL (0.0-0.7) Basophils # (Auto) 0.1 x10^3/uL (0.0-0.2) 0.1 x10^3/uL (0.0-0.2) Segmented Neutrophils % 30 % (35-66) Lymphocytes % 62 % (24-48) Atypical Lymphocytes % (Manual) 7 % (0-0) Monocytes % 1 % (0-10) Platelet Estimate Adequate (ADEQUATE) Sodium Level 141 mmol/L (136-145) 142 mmol/L (136-145) Potassium Level 3.6 mmol/L (3.5-5.1) 3.9 mmol/L (3.5-5.1) Chloride Level 106 mmol/L (98-107) 107 mmol/L (98-107) Carbon Dioxide Level 21 mmol/L (21-32) 20 mmol/L (21-32) Anion Gap 14 (6-14) 15 (6-14) Blood Urea Nitrogen 30 mg/dL (7-20) 28 mg/dL (7-20) Creatinine 2.6 mg/dL (0.6-1.0) 2.3 mg/dL (0.6-1.0) Estimated GFR (Cockcroft-Gault) 21.3 24.5 BUN/Creatinine Ratio 12 (6-20) 12 (6-20) Glucose Level 140 mg/dL (70-99) 126 mg/dL (70-99) Calcium Level 9.1 mg/dL (8.5-10.1) 9.0 mg/dL (8.5-10.1) Total Bilirubin 0.5 mg/dL (0.2-1.0) 0.5 mg/dL (0.2-1.0) Aspartate Amino Transf (AST/SGOT) 24 U/L (15-37) 24 U/L (15-37) Alanine Aminotransferase (ALT/SGPT) 31 U/L (14-59) 24 U/L (14-59) Alkaline Phosphatase 119 U/L (46-116) 109 U/L (46-116) Troponin I High Sensitivity 80 ng/L (4-50) 587 ng/L (4-50) RW-Sxx-Q-Type Natriuretic Peptide 26385 pg/mL (0-449) Total Protein 7.8 g/dL (6.4-8.2) 7.3 g/dL (6.4-8.2) Albumin 3.9 g/dL (3.4-5.0) 3.5 g/dL (3.4-5.0) Albumin/Globulin Ratio 1.0 (1.0-1.7) 0.9 (1.0-1.7) Urine Collection Type Unknown Urine Color Yellow Urine Clarity Clear Urine pH 5.5 (<5.0-8.0) Urine Specific [place] 1.020 (1.000-1.030) Urine Protein >=300 mg/dL (NEG-TRACE) Urine Glucose (UA) Negative mg/dL (NEG) Urine Ketones (Stick) Negative mg/dL (NEG) Urine Blood Small (NEG) Urine Nitrite Negative (NEG) Urine Bilirubin Negative (NEG) Urine Urobilinogen Dipstick 1.0 mg/dL (0.2 mg/dL) Urine Leukocyte Esterase Small (NEG) Urine RBC 1-2 /HPF (0-2) Urine WBC 5-10 /HPF (0-4) Urine Squamous Epithelial Cells Mod /LPF Urine Bacteria Few /HPF (0-FEW) Urine Mucus Slight /LPF Magnesium Level 2.3 mg/dL (1.8-2.4) Triglycerides Level 93 mg/dL (0-150) Cholesterol Level 209 mg/dL (0-200) LDL Cholesterol, Calculated 115 mg/dL (0-100) VLDL Cholesterol, Calculated 19 mg/dL (0-40) Non-HDL Cholesterol Calculated 134 mg/dL (0-129) HDL Cholesterol 75 mg/dL (40-60) Cholesterol/HDL Ratio 2.8 Thyroid Stimulating Hormone (TSH) 0.887 uIU/mL (0.358-3.74) Review All relevant outside records, renal labs, imaging studies, telemetry/EKG's were reviewed. Images Images PATIENT: NORRIS ASHFORD ACCOUNT: [id number] : 1935 LOCATION: ER AGE: 85 SEX: F EXAM STATUS: REG ER ORD. PHYSICIAN: JENNA OLIVARES APRN REASON: soa PROCEDURE: PORTABLE CHEST 1V EXAMINATION: Chest radiograph. VIEWS: Single AP view of the chest COMPARISON: None INDICATION:85 years, Female, shortness of air. FINDINGS: Heart size is mildly enlarged. There are scattered and confluent predominantly middle and lower lobe airspace opacities with increased reticular markings. Trace bilateral pleural effusions. No pneumothorax. No acute osseous process. IMPRESSION: Findings may represent interstitial/alveolar pulmonary edema versus multifocal pneumonia with probable trace bilateral pleural effusions. GLO GARAY MD Feb 22, 2021 09:49
--- NOTE | 2021-02-22 10:01 | CARD ---
MR#: [id number] Date of Study: 02/22/2021 Ordering Physician: MINOO GARCIA, Referring Physician: MINOO GARCIA, Tech: Winnie Odelltjvani, RUST APPROVED REPORT EXAM: Two-dimensional and M-mode echocardiogram with Doppler and color Doppler. Other Information Quality : GoodHR: 98bpm INDICATION Dyspnea Congestive Heart Failure RISK FACTORS Hypertension Smoking 2D DIMENSIONS RVDd2.3 (2.9-3.5cm)Left Atrium(2D)3.3 (1.6-4.0cm) IVSd1.1 (0.7-1.1cm)Aortic Root(2D)2.5 (2.0-3.7cm) LVDd5.3 (3.9-5.9cm)LVOT Diameter1.9 (1.8-2.4cm) PWd1.0 (0.7-1.1cm)LVDs4.4 (2.5-4.0cm) FS (%) 16.8 %SV46.3 ml LVEF(%)34.8 (>50%) Aortic Valve AoV Peak Jay.144.2cm/sAoV VTI19.7cm AO Peak GR.8.3mmHgAO Mean GR.4mmHg AI P 1/2 [id number] Mitral Valve MV E Velocity0.4cm/sMV E Peak Gr.119mmHg MV DECEL [id number] A Ubnzjmax45.0cm/s MV E Mean Gr.1mmHgE/A Ratio0.0 TDI Lateral E' P. V4.05cm/sMedial E' P. V4.05cm/s E/Lateral E'0.1E/Medial E'0.1 Tricuspid Valve TR P. [id number] [id number] TR Peak Gr.[id number] LEFT VENTRICLE The left ventricle is normal size. There is borderline to mild concentric left ventricular hypertroph y. The systolic function is severely impaired. The Ejection Fraction is 20%. There is severe global h ypokinesis. Transmitral Doppler flow pattern is Grade II-pseudonormal filling dynamics. RIGHT VENTRICLE The right ventricle is normal size. There is normal right ventricular wall thickness. RV Systolic fun ction is mildly reduced. ATRIA The left atrium is mildly dilated. The right atrium size is normal. The interatrial septum is intact with no evidence for an atrial septal defect or patent foramen ovale as noted on 2-D or Doppler imagi ng. AORTIC VALVE The aortic valve is normal in structure and function. Doppler and Color Flow revealed trace aortic re gurgitation. There is no significant aortic valvular stenosis. Calculated aortic valve area is 1.6 cm 2 with maximum pressure gradient of 9 mmHg and mean pressure gradient of 4 mmHg. MITRAL VALVE The mitral valve is normal in structure and function. There is no evidence of mitral valve prolapse. There is no mitral valve stenosis. Doppler and Color-flow revealed trace to mild mitral regurgitation . TRICUSPID VALVE The tricuspid valve is normal in structure and function. Doppler and Color Flow revealed trace tricus pid regurgitation with an estimated PAP of 45 mmHg. There is no tricuspid valve stenosis. PULMONIC VALVE The pulmonic valve is not well visualized. Doppler and Color Flow revealed trace pulmonic valvular re gurgitation. There is no pulmonic valvular stenosis. GREAT VESSELS The aortic root is normal in size. The ascending aorta is normal in size. The IVC is normal in size a nd collapses >50% with inspiration. PERICARDIAL EFFUSION There is a left pleural effusion. There is no evidence of significant pericardial effusion. Critical Notification Critical Value: No <Conclusion> The systolic function is severely impaired. The Ejection Fraction is 20%. There is severe global hypokinesis. Doppler and Color Flow revealed trace tricuspid regurgitation with an estimated PAP of 45 mmHg. Signed by : Jamaal Villanueva, Electronically Approved : 02/22/2021 10:00:17
--- NOTE | 2021-02-22 10:54 | RAD ---
EXAM: Dyer scale and color Doppler renal artery sonogram. HISTORY: Renal failure. TECHNIQUE: Dyer scale and color Doppler sonographic imaging of the kidneys and renal arteries with sp ectral waveform analysis was performed. COMPARISON: None. FINDINGS: The right kidney measures 8.9 cm [id number]. The left kidney measures 7.7 cm [id number] . There is echogenic renal parenchyma. There are simple appearing renal cysts, the largest of which i s seen within the inferior lateral left kidney measuring 1.6 cm. Follow-up is not routinely performed for simple cysts. The bladder is unremarkable. There are normal peak systolic velocities and renal a rteries and normal renal artery to aorta velocity ratios. IMPRESSION: 1. Left greater than right renal atrophy. 2. Echogenic renal parenchyma, a finding which can be seen with medical renal disease. 3. Small simple appearing renal cysts. 4. No Doppler evidence of hemodynamically significant stenosis involving the renal arteries. Electronically signed by: Holly Dill MD (02/22/2021 10:52 AM) [id number]
--- NOTE | 2021-02-22 10:54 | RAD ---
EXAM: Dyer scale and color Doppler renal artery sonogram. HISTORY: Renal failure. TECHNIQUE: Dyer scale and color Doppler sonographic imaging of the kidneys and renal arteries with sp ectral waveform analysis was performed. COMPARISON: None. FINDINGS: The right kidney measures 8.9 cm vxss-[id number]. The left kidney measures 7.7 cm [id number] . There is echogenic renal parenchyma. There are simple appearing renal cysts, the largest of which i s seen within the inferior lateral left kidney measuring 1.6 cm. Follow-up is not routinely performed for simple cysts. The bladder is unremarkable. There are normal peak systolic velocities and renal a rteries and normal renal artery to aorta velocity ratios. IMPRESSION: 1. Left greater than right renal atrophy. 2. Echogenic renal parenchyma, a finding which can be seen with medical renal disease. 3. Small simple appearing renal cysts. 4. No Doppler evidence of hemodynamically significant stenosis involving the renal arteries. Electronically signed by: Holly Dill MD (02/22/2021 10:52 AM) [id number]
[2021-02-22] MEDS: hydrALAZINE 25 MG TABLET PO SCH ×2 (12:09→21:00)
[2021-02-22] MEDS: NICOTINE 14MG PATCH. TD SCH (12:23)
[2021-02-22] MEDS: ISOSORBIDE MONONITRATE ER 30 MG TAB.ER.24H PO SCH (12:24)
[2021-02-22] MEDS: HEPARIN for SUB-Q USE 5,000 UNIT/ML VIAL. SQ SCH ×2 (12:31→20:54)
--- NOTE | 2021-02-22 12:46 | HP ---
DATE OF SERVICE: 02/22/2021 ADMIT DATE: 02/21/2021 REASON FOR ADMISSION TO THE HOSPITAL: Pulmonary edema, malignant hypertension. HISTORY OF PRESENT ILLNESS: The patient is an 85-year-old female patient with history of hypertension and kidney disease. Her creatinine is usually less than 2 and she has one of her daughters recently. She has been dealing with grief at this point and she was having shortness of breath, brought to the Emergency Room. Her blood pressure was high at 200. X-ray shows pulmonary edema, was given Lasix and placed on BiPAP, admitted to the ICU. Her troponin 80 went up to 500. The patient is put on nitroglycerin drip and anticoagulation. PAST MEDICAL HISTORY: History of hypertension, anxiety, depression, kidney disease. PAST SURGICAL HISTORY: No pertinent history. FAMILY HISTORY: Heart disease in the sister. SOCIAL HISTORY: Smokes around 1 pack for at least 40 years. Denies alcohol or drug abuse. ALLERGIES: No known drug allergies. MEDICATIONS AT HOME: She is supposed to be on hypertensive medications, amlodipine, hydrochlorothiazide and lisinopril. REVIEW OF SYMPTOMS: The patient was having shortness of breath yesterday. Today, she is comfortable in the ICU. PHYSICAL EXAMINATION: VITAL SIGNS: At the time of admission shows temperature of 98, pulse of 129, respirations of 28, blood pressure of 216/129, and 88 on room air and on 2 liters 93. HEENT: Head is atraumatic. Pupils are equal. Oral cavity, dentures. NECK: Supple. Thyroid not enlarged. JVD not elevated. CHEST: Symmetrical. CARDIOVASCULAR: S1, S2. LUNGS: Few crackles at the base. ABDOMEN: Soft. No mass palpable. EXTERNAL GENITALIA: No Matos. RECTUM: Deferred. EXTREMITIES: No calf tenderness, no edema. NEUROLOGIC: Moving all extremities. No focal deficits noted. LABORATORY DATA: Shows white count of 6, hemoglobin 12.6, platelets 222. Electrolytes show sodium 142, potassium 3.9, chloride 107, bicarbonate 20, anion gap 15, BUN 28, creatinine 2.3, glucose 126. LFTs normal. Troponin peaked to 587. Cholesterol 209, LDL 115. TSH is 0.8. Magnesium 2.3. Urine protein more than 300. Chest x-ray shows pulmonary edema. EKG negative for acute ischemia. FINAL IMPRESSION: 1. Acute pulmonary edema. 2. Malignant hypertension. 3. Elevated troponin. 4. Acute on chronic kidney disease. 5. Smoking. 6. Depression, recent grief, loss of her daughter. PLAN: At this time, admit to hospital. Placed on nitroglycerin drip. Cardiology is consulted. Echocardiogram. DVT prophylaxis with Lovenox. Also, get ultrasound of the kidneys and Renal consult and see how she improves in the next 24-48 hours. We will put her on a cholesterol medication as well as aspirin. The patient was placed on BiPAP, will have a pulmonary consult. GAURAV/EDWIN/DAVID DR: Oleksandr TID: [id number]
[2021-02-22] MEDS: buPROPion 75 MG TABLET. PO SCH ×2 (14:40→20:52)
--- NOTE | 2021-02-22 14:53 | RAD ---
Examination: CT chest without contrast HISTORY: History of lung infiltrates COMPARISON: None TECHNIQUE: Axial CT images of chest were performed without contrast. Coronal and sagittal reformats a re performed Exposure: One or more of the following individualized dose reduction techniques were utilized for thi s examination: 1. Automated exposure control 2. Adjustment of the mA and/or kV according to patient size 3. Use of iterative reconstruction technique FINDINGS: The central airways are patent. The ascending aorta measures 3.2 cm in transverse dimension. Coronary artery calcifications identified. Moderate bilateral lung emphysematous changes. Small bilateral ple ural effusions with focal airspace opacity identified in the left lower lobe of the lung. Mild atelec tasis right lung base. The visualized noncontrasted liver, spleen, grossly appears unremarkable. 3 mm calculus right kidney partially visualized. Moderate degenerative disease thoracic spine. IMPRESSION: 1. Focal consolidation left lower lobe of the lung likely pneumonia or atelectasis. Follow-up to reso lution. 2. Mild right lung base atelectasis. 3. Small bilateral pleural effusions. 4. Moderate lung emphysematous changes. Electronically signed by: Quang Wu MD (02/22/2021 2:51 PM) [id number]
--- NOTE | 2021-02-22 16:19 | NUR ---
SS following for discharge planning. SS reviewed pt chart and discussed with pt RN. Pt is from home and is currently on room air. Cardiology and Nephrology consulted. Possible discharge to home tomorrow. No social work needs at this time. SS will continue to follow for discharge planning.
[2021-02-22] MEDS: HYDROcodone/APAP 5/325MG 1 TAB TABLET PO PRN (18:18)
[2021-02-22] MEDS: ATORVASTATIN CALCIUM 20 MG TABLET PO SCH (20:51)
--- NOTE | 2021-02-22 20:51 | CONS ---
DATE OF CONSULTATION: 02/22/2021 PULMONARY CONSULTATION ATTENDING PHYSICIAN: Dr. Munoz. REASON FOR CONSULTATION: The patient is seen in pulmonary consultation at the request of Dr. Munoz for abnormal x-ray, increasing shortness of breath. HISTORY OF PRESENT ILLNESS: The patient is an 85-year-old that presented with shortness of breath. She was found to have markedly elevated blood pressure over 200. The patient normally takes losartan and Norvasc. Apparently, she has not been totally compliant. She is currently dealing with a daughter that from cancer 3 months ago. She came in with the above complaints, was found to have a chest x-ray, which was abnormal, and I was consulted. The x-ray was personally reviewed. There is evidence of increased interstitial pulmonary edema. There may be some chronic changes. The patient has been smoking all of her adult life. She continues to smoke. There is no prior history of coronary artery disease, arrhythmias, VTE, CVA. PAST MEDICAL HISTORY: Hypertension, tobacco dependent, chronic renal insufficiency. PAST SURGICAL HISTORY: No major surgeries, at least recently. FAMILY HISTORY: Heart disease in sister. SOCIAL HISTORY: She smokes on a daily basis. REVIEW OF SYSTEMS: CONSTITUTIONAL: No fever or chills. EYES: No change in visual acuity. HENT: No nasal congestion or sore throat. PULMONARY: As indicated above. CARDIOVASCULAR: As indicated above. GASTROINTESTINAL: No nausea, vomiting or diarrhea. GENITOURINARY: No dysuria or frequency. MUSCULOSKELETAL: No localized muscle aches or joint pains. SKIN: No new skin rashes. NEUROLOGIC: No headaches, diplopia or blurred vision. CURRENT MEDICATIONS: List was reviewed. PHYSICAL EXAMINATION: VITAL SIGNS: Stable. O2 saturation was greater than 92%, currently on room air. She will utilize BiPAP last night when she had acute respiratory failure. HEENT: Eyes: The sclerae were nonicteric. NECK: Jugular venous distention was not elevated. No lymphadenopathy. CHEST: Full expansion. LUNGS: Adequate flow with some slight crackles. CARDIOVASCULAR: Regular rate and rhythm with S1, S2, no S3. ABDOMEN: Soft. EXTREMITIES: No clubbing or cyanosis. No pitting edema. LABORATORY DATA: Reviewed. White count was normal. Hemoglobin and hematocrit were noted. BNP was elevated. Troponin was elevated. BUN and creatinine were elevated. Chest x-ray as indicated above. IMPRESSION: 1. Acute hypoxemic respiratory failure secondary to acute systolic, diastolic heart failure. 2. Acute on chronic systolic, diastolic heart failure. 3. Malignant hypertension. 4. Acute on chronic kidney disease. 5. Chronic obstructive pulmonary disease, unknown FEV1. 6. Tobacco dependent. 7. Depression. 8. Elevated troponin. PLAN: 1. Respiratory status at this moment appears to be compensated. The patient is currently off of BiPAP. 2. Continue Lasix. 3. Obtain CT chest. 4. I have discussed the importance of discontinuing tobacco, patient has agreed. We will initiate Wellbutrin and Nicoderm patch. 5. Monitor labs. 6. Follow Cardiology input. Total cumulative critical care time of 40 minutes, interviewing and examining the patient, reviewing the current documentation and imaging studies, reviewing the current findings with family at the bedside, and formulating a plan. MOY/LISETH/RHETT DR: Madhavi TID: [id number]
[2021-02-22] MEDS ORDERED: ATORVASTATIN CALCIUM 20 MG TABLET PO SCH (21:00)
[2021-02-23] VITALS: BP 133/65
[2021-02-23 04:00] VITALS: BP 114/57
[2021-02-23 06:09] LABS: BASO % 0 % (0-3); EOS # 0.2 x10^3/uL (0.0-0.7); EOS % 3 % (0-3); HEMATOCRIT 33.7 % (36.0-47.0); HEMOGLOBIN 10.9 g/dL (12.0-15.5); LYMPH # 2.5 x10^3/uL (1.0-4.8); LYMPH % 48 % (24-48); MEAN CORPUSCULAR HEMOGLOBIN 29 pg (25-35); MEAN CORPUSCULAR HGB CONC 32 g/dL (31-37); MEAN CORPUSCULAR VOLUME 89 fL (79-100); MONO # 0.5 x10^3/uL (0.0-1.1); MONO % 10 % (0-9); NEUT % 38 % (31-73); PLATELET COUNT 179 x10^3/uL (140-400); RED BLOOD COUNT 3.79 x10^6/uL (3.50-5.40); RED CELL DISTRIBUTION WIDTH 13.4 % (11.5-14.5); WHITE BLOOD COUNT 5.1 x10^3/uL (4.0-11.0)
[2021-02-23 06:19] LABS: CALCIUM 8.6 mg/dL (8.5-10.1); CREATININE 2.8 mg/dL (0.6-1.0); GFR 19.5; POTASSIUM 3.4 mmol/L (3.5-5.1)
--- NOTE | 2021-02-23 08:11 | PDOC ---
PULMONARY PROGRESS NOTES DATE: 02/23/21 TIME: 08:10 Subjective Patient off of oxygen, not more short of breath. Vitals Vital Signs Date Time Temp Pulse Resp B/P (MAP) Pulse Ox O2 Delivery O2 Flow Rate FiO2 02/23/21 04:00 98.3 74 14 114/57 100 Nasal Cannula 2.0 98.3 ROS: No Nausea, No Chest Pain, No Abdominal Pain, No Increase Cough Lungs: Clear Cardiovascular: S1, S2 Abdomen: Soft Neuro Exam: Alert Extremities: No Edema Skin: Warm Labs Laboratory Tests Test 02/21/21 21:17 02/22/21 00:40 02/22/21 03:05 02/22/21 09:45 White Blood Count 6.5 x10^3/uL (4.0-11.0) 6.6 x10^3/uL (4.0-11.0) Red Blood Count 4.39 x10^6/uL (3.50-5.40) 4.34 x10^6/uL (3.50-5.40) Hemoglobin 12.6 g/dL (12.0-15.5) 12.6 g/dL (12.0-15.5) Hematocrit 39.3 % (36.0-47.0) 39.4 % (36.0-47.0) Mean Corpuscular Volume 90 fL (79-100) 91 fL (79-100) Mean Corpuscular Hemoglobin 29 pg (25-35) 29 pg (25-35) Mean Corpuscular Hemoglobin Concent 32 g/dL (31-37) 32 g/dL (31-37) Red Cell Distribution Width 13.4 % (11.5-14.5) 13.9 % (11.5-14.5) Platelet Count 222 x10^3/uL (140-400) 201 x10^3/uL (140-400) Neutrophils (%) (Auto) 30 % (31-73) 54 % (31-73) Lymphocytes (%) (Auto) 60 % (24-48) 37 % (24-48) Monocytes (%) (Auto) 8 % (0-9) 8 % (0-9) Eosinophils (%) (Auto) 2 % (0-3) 1 % (0-3) Basophils (%) (Auto) 1 % (0-3) 1 % (0-3) Neutrophils # (Auto) 1.9 x10^3/uL (1.8-7.7) 3.6 x10^3/uL (1.8-7.7) Lymphocytes # (Auto) 3.9 x10^3/uL (1.0-4.8) 2.4 x10^3/uL (1.0-4.8) Monocytes # (Auto) 0.5 x10^3/uL (0.0-1.1) 0.5 x10^3/uL (0.0-1.1) Eosinophils # (Auto) 0.1 x10^3/uL (0.0-0.7) 0.0 x10^3/uL (0.0-0.7) Basophils # (Auto) 0.1 x10^3/uL (0.0-0.2) 0.1 x10^3/uL (0.0-0.2) Segmented Neutrophils % 30 % (35-66) Lymphocytes % 62 % (24-48) Atypical Lymphocytes % (Manual) 7 % (0-0) Monocytes % 1 % (0-10) Platelet Estimate Adequate (ADEQUATE) Sodium Level 141 mmol/L (136-145) 142 mmol/L (136-145) Potassium Level 3.6 mmol/L (3.5-5.1) 3.9 mmol/L (3.5-5.1) Chloride Level 106 mmol/L (98-107) 107 mmol/L (98-107) Carbon Dioxide Level 21 mmol/L (21-32) 20 mmol/L (21-32) Anion Gap 14 (6-14) 15 (6-14) Blood Urea Nitrogen 30 mg/dL (7-20) 28 mg/dL (7-20) Creatinine 2.6 mg/dL (0.6-1.0) 2.3 mg/dL (0.6-1.0) Estimated GFR (Cockcroft-Gault) 21.3 24.5 BUN/Creatinine Ratio 12 (6-20) 12 (6-20) Glucose Level 140 mg/dL (70-99) 126 mg/dL (70-99) Calcium Level 9.1 mg/dL (8.5-10.1) 9.0 mg/dL (8.5-10.1) Total Bilirubin 0.5 mg/dL (0.2-1.0) 0.5 mg/dL (0.2-1.0) Aspartate Amino Transf (AST/SGOT) 24 U/L (15-37) 24 U/L (15-37) Alanine Aminotransferase (ALT/SGPT) 31 U/L (14-59) 24 U/L (14-59) Alkaline Phosphatase 119 U/L (46-116) 109 U/L (46-116) Troponin I High Sensitivity 80 ng/L (4-50) 587 ng/L (4-50) 623 ng/L (4-50) EA-Xjj-P-Type Natriuretic Peptide 75334 pg/mL (0-449) Total Protein 7.8 g/dL (6.4-8.2) 7.3 g/dL (6.4-8.2) Albumin 3.9 g/dL (3.4-5.0) 3.5 g/dL (3.4-5.0) Albumin/Globulin Ratio 1.0 (1.0-1.7) 0.9 (1.0-1.7) Urine Collection Type Unknown Urine Color Yellow Urine Clarity Clear Urine pH 5.5 (<5.0-8.0) Urine Specific [place] 1.020 (1.000-1.030) Urine Protein >=300 mg/dL (NEG-TRACE) Urine Glucose (UA) Negative mg/dL (NEG) Urine Ketones (Stick) Negative mg/dL (NEG) Urine Blood Small (NEG) Urine Nitrite Negative (NEG) Urine Bilirubin Negative (NEG) Urine Urobilinogen Dipstick 1.0 mg/dL (0.2 mg/dL) Urine Leukocyte Esterase Small (NEG) Urine RBC 1-2 /HPF (0-2) Urine WBC 5-10 /HPF (0-4) Urine Squamous Epithelial Cells Mod /LPF Urine Bacteria Few /HPF (0-FEW) Urine Mucus Slight /LPF Magnesium Level 2.3 mg/dL (1.8-2.4) Triglycerides Level 93 mg/dL (0-150) Cholesterol Level 209 mg/dL (0-200) LDL Cholesterol, Calculated 115 mg/dL (0-100) VLDL Cholesterol, Calculated 19 mg/dL (0-40) Non-HDL Cholesterol Calculated 134 mg/dL (0-129) HDL Cholesterol 75 mg/dL (40-60) Cholesterol/HDL Ratio 2.8 Thyroid Stimulating Hormone (TSH) 0.887 uIU/mL (0.358-3.74) Test 02/22/21 16:15 02/23/21 05:00 Troponin I High Sensitivity 671 ng/L (4-50) 464 ng/L (4-50) White Blood Count 5.1 x10^3/uL (4.0-11.0) Red Blood Count 3.79 x10^6/uL (3.50-5.40) Hemoglobin 10.9 g/dL (12.0-15.5) Hematocrit 33.7 % (36.0-47.0) Mean Corpuscular Volume 89 fL (79-100) Mean Corpuscular Hemoglobin 29 pg (25-35) Mean Corpuscular Hemoglobin Concent 32 g/dL (31-37) Red Cell Distribution Width 13.4 % (11.5-14.5) Platelet Count 179 x10^3/uL (140-400) Neutrophils (%) (Auto) 38 % (31-73) Lymphocytes (%) (Auto) 48 % (24-48) Monocytes (%) (Auto) 10 % (0-9) Eosinophils (%) (Auto) 3 % (0-3) Basophils (%) (Auto) 0 % (0-3) Neutrophils # (Auto) 2.0 x10^3/uL (1.8-7.7) Lymphocytes # (Auto) 2.5 x10^3/uL (1.0-4.8) Monocytes # (Auto) 0.5 x10^3/uL (0.0-1.1) Eosinophils # (Auto) 0.2 x10^3/uL (0.0-0.7) Basophils # (Auto) 0.0 x10^3/uL (0.0-0.2) Sodium Level 143 mmol/L (136-145) Potassium Level 3.4 mmol/L (3.5-5.1) Chloride Level 104 mmol/L (98-107) Carbon Dioxide Level 25 mmol/L (21-32) Anion Gap 14 (6-14) Blood Urea Nitrogen 34 mg/dL (7-20) Creatinine 2.8 mg/dL (0.6-1.0) Estimated GFR (Cockcroft-Gault) 19.5 Glucose Level 91 mg/dL (70-99) Calcium Level 8.6 mg/dL (8.5-10.1) Laboratory Tests Test 02/22/21 09:45 02/22/21 16:15 02/23/21 05:00 Troponin I High Sensitivity 623 ng/L (4-50) 671 ng/L (4-50) 464 ng/L (4-50) White Blood Count 5.1 x10^3/uL (4.0-11.0) Red Blood Count 3.79 x10^6/uL (3.50-5.40) Hemoglobin 10.9 g/dL (12.0-15.5) Hematocrit 33.7 % (36.0-47.0) Mean Corpuscular Volume 89 fL (79-100) Mean Corpuscular Hemoglobin 29 pg (25-35) Mean Corpuscular Hemoglobin Concent 32 g/dL (31-37) Red Cell Distribution Width 13.4 % (11.5-14.5) Platelet Count 179 x10^3/uL (140-400) Neutrophils (%) (Auto) 38 % (31-73) Lymphocytes (%) (Auto) 48 % (24-48) Monocytes (%) (Auto) 10 % (0-9) Eosinophils (%) (Auto) 3 % (0-3) Basophils (%) (Auto) 0 % (0-3) Neutrophils # (Auto) 2.0 x10^3/uL (1.8-7.7) Lymphocytes # (Auto) 2.5 x10^3/uL (1.0-4.8) Monocytes # (Auto) 0.5 x10^3/uL (0.0-1.1) Eosinophils # (Auto) 0.2 x10^3/uL (0.0-0.7) Basophils # (Auto) 0.0 x10^3/uL (0.0-0.2) Sodium Level 143 mmol/L (136-145) Potassium Level 3.4 mmol/L (3.5-5.1) Chloride Level 104 mmol/L (98-107) Carbon Dioxide Level 25 mmol/L (21-32) Anion Gap 14 (6-14) Blood Urea Nitrogen 34 mg/dL (7-20) Creatinine 2.8 mg/dL (0.6-1.0) Estimated GFR (Cockcroft-Gault) 19.5 Glucose Level 91 mg/dL (70-99) Calcium Level 8.6 mg/dL (8.5-10.1) Impression . IMPRESSION: 1. Acute hypoxemic respiratory failure secondary to acute systolic, diastolic heart failure. 2. Acute on chronic systolic, diastolic heart failure. 3. Malignant hypertension. 4. Acute on chronic kidney disease. 5. Chronic obstructive pulmonary disease, unknown FEV1. 6. Tobacco dependent. 7. Depression. 8. Elevated troponin. Plan . Updated 02/23 Respiratory status compensated Reviewed CT chest there is a left lower lobe consolidation possible atelectasis Small bilateral effusion Emphysema No lung masses Continue current support 6-minute walk prior to discharge Follow nephrology input, patient at high risk for renal failure, with the addition of IV contrast PLAN: 1. Respiratory status at this moment appears to be compensated. The patient is currently off of BiPAP. 2. Continue Lasix. 3. Obtain CT chest. 4. I have discussed the importance of discontinuing tobacco, patient has agreed. We will initiate Wellbutrin and Nicoderm patch. 5. Monitor labs. 6. Follow Cardiology input. Total cumulative critical care time of 40 minutes, interviewing and examining the patient, reviewing the current documentation and imaging studies, reviewing the current findings with family at the bedside, and formulating a plan. CARLOS NEWELL MD Feb 23, 2021 08:10
[2021-02-23] MEDS: HYDROcodone/APAP 5/325MG 1 TAB TABLET PO PRN ×3 (08:19→20:15)
--- NOTE | 2021-02-23 08:32 | PDOC ---
DATE OF SERVICE DATE: 02/23/21 TIME: 08:28 SUBJECTIVE ROS No complaints by patient Transferred out of ICU OBJECTIVE Vital Signs Vital Signs Date Time Temp Pulse Resp B/P (MAP) Pulse Ox O2 Delivery O2 Flow Rate FiO2 02/23/21 04:00 98.3 74 14 114/57 100 Nasal Cannula 2.0 98.3 I & 0 Intake and Output 02/23/21 07:00 Intake Total 740 ml Output Total 2000 ml Balance -1260 ml Intake Oral 740 ml Output Urine Total 2000 ml # Voids 10 PHYSICAL EXAM Physical Exam General: No acute distress HEENT: Atraumatic, Mucous membr. moist/pink Neck Supple Lungs: Other (diminished bases), Non labored Heart: Regular rate (SR/ST with PVCs), Normal S1, Normal S2, No murmurs Abdomen: Soft, No tenderness Extremities: No cyanosis, No edema Skin: No breakdown, No significant lesion Neuro: Normal speech, Sensation intact, Alert, Oriented X3, Cooperative, Psych/Mental Status: Mental status NL, Mood NL No gil, No CVA or SP tenderness DIAGNOSIS/ASSESSMENT Assessment & Plan RAMON on CKD- Suspect cardiorenal , Non Oliguric, UA unremarkable except overt proteinuria Creatinine was trending down, went up - Recd IV Furosemide . Episodes of low BP per vitals recorded , E-Lytes stable, Currently no emergent indication for dialysis. Supportive care , Strict I/O , Holding ARB , Discussed risks of RICKY with Cardiac cath, recommned holding if not emergent for Cr to return to baseline. Dw Family at great length and with Dr. Munoz CKD - Per Dr. Munoz- baseline Creat 1.8-2.0. Renal US Left greater than right renal atrophy. Echogenic renal parenchyma, a finding which can be seen with medical renal disease.3. Small simple appearing renal cysts. . Acute CHF with possible diastolic dysfunction: due to uncontrolled HTN- cardiology managing Malignant HTN- defer to cardiology No Doppler evidence of hemodynamically significant stenosis involving the renal arteries. Tobaccoism PVCs COMMENT/RELEVANT DATA Meds Current Medications Medications (Trade) Dose Ordered Sig/Karishma Start Time Stop Time Status Last Admin Dose Admin Acetaminophen/ Hydrocodone Bitart (Lortab 5/325) 1 tab PRN Q6HRS PRN 02/22/21 17:30 02/23/21 08:19 1 TAB Amlodipine Besylate (Norvasc) 10 mg DAILY 02/23/21 09:00 Aspirin (Ecotrin) 81 mg [id number] 02/22/21 08:00 02/22/21 08:29 81 MG Atorvastatin Calcium (Lipitor) 20 mg QHS 02/22/21 21:00 02/22/21 20:51 20 MG Bupropion HCl (Wellbutrin) 75 mg [id number] 02/22/21 14:00 02/22/21 20:52 75 MG Carvedilol (Coreg) 6.25 mg [id number] 02/22/21 08:00 02/22/21 18:18 6.25 MG Furosemide (Lasix) 40 mg 1X ONCE 02/22/21 08:00 02/22/21 08:01 DC 02/22/21 08:30 40 MG Heparin Sodium (Porcine) (Heparin Sodium) 5,000 unit Q12HR 02/22/21 09:15 02/22/21 20:54 5,000 UNIT Hydralazine HCl (Apresoline) 25 mg BID 02/22/21 12:30 Isosorbide Mononitrate (Imdur) 30 mg DAILY 02/22/21 12:30 02/22/21 12:24 30 MG Nicotine (Nicoderm Cq 14mg) 1 patch DAILY 02/22/21 12:00 02/22/21 12:23 1 PATCH Nitroglycerin (Nitrostat) 0.4 mg PRN Q5MIN PRN 02/21/21 22:00 02/21/21 20:40 0.4 MG Nitroglycerin/ Dextrose 250 ml @ 1.5 mls/hr 1X ONCE 02/21/21 22:00 02/28/21 20:39 Lab Laboratory Tests Test 02/22/21 09:45 02/22/21 16:15 02/23/21 05:00 Troponin I High Sensitivity 623 ng/L (4-50) 671 ng/L (4-50) 464 ng/L (4-50) White Blood Count 5.1 x10^3/uL (4.0-11.0) Red Blood Count 3.79 x10^6/uL (3.50-5.40) Hemoglobin 10.9 g/dL (12.0-15.5) Hematocrit 33.7 % (36.0-47.0) Mean Corpuscular Volume 89 fL (79-100) Mean Corpuscular Hemoglobin 29 pg (25-35) Mean Corpuscular Hemoglobin Concent 32 g/dL (31-37) Red Cell Distribution Width 13.4 % (11.5-14.5) Platelet Count 179 x10^3/uL (140-400) Neutrophils (%) (Auto) 38 % (31-73) Lymphocytes (%) (Auto) 48 % (24-48) Monocytes (%) (Auto) 10 % (0-9) Eosinophils (%) (Auto) 3 % (0-3) Basophils (%) (Auto) 0 % (0-3) Neutrophils # (Auto) 2.0 x10^3/uL (1.8-7.7) Lymphocytes # (Auto) 2.5 x10^3/uL (1.0-4.8) Monocytes # (Auto) 0.5 x10^3/uL (0.0-1.1) Eosinophils # (Auto) 0.2 x10^3/uL (0.0-0.7) Basophils # (Auto) 0.0 x10^3/uL (0.0-0.2) Sodium Level 143 mmol/L (136-145) Potassium Level 3.4 mmol/L (3.5-5.1) Chloride Level 104 mmol/L (98-107) Carbon Dioxide Level 25 mmol/L (21-32) Anion Gap 14 (6-14) Blood Urea Nitrogen 34 mg/dL (7-20) Creatinine 2.8 mg/dL (0.6-1.0) Estimated GFR (Cockcroft-Gault) 19.5 Glucose Level 91 mg/dL (70-99) Calcium Level 8.6 mg/dL (8.5-10.1) Results All relevant outside records, renal labs, imaging studies, telemetry/EKG's were reviewed. Justicifation of Admission Dx: Justifications for Admission: Justification of Admission Dx: N/A GLO GARAY MD Feb 23, 2021 08:32
[2021-02-23] MEDS: NICOTINE 14MG PATCH. TD SCH (09:00)
[2021-02-23] MEDS: ASPIRIN ENTERIC COATED 81 MG TABLET.DR. PO SCH (09:24)
[2021-02-23] MEDS: hydrALAZINE 25 MG TABLET PO SCH ×2 (09:24→20:10)
--- NOTE | 2021-02-23 09:24 | PDOC ---
PROGRESS NOTES Date of Service: DATE: 02/23/21 TIME: 09:24 Subjective Subjective feels ok ,want to go home Objective Objective Vital Signs Date Time Temp Pulse Resp B/P (MAP) Pulse Ox O2 Delivery O2 Flow Rate FiO2 02/23/21 04:00 98.3 74 14 114/57 100 Nasal Cannula 2.0 98.3 Intake and Output 02/23/21 07:00 Intake Total 740 ml Output Total 2000 ml Balance -1260 ml Intake Oral 740 ml Output Urine Total 2000 ml # Voids 10 Physical Exam Abdomen: Soft, No tenderness Heart: Regular rate (SR/ST with PVCs), Normal S1, Normal S2, No murmurs Extremities: No cyanosis, No edema General: Alert, Oriented X3, Cooperative, No acute distress HEENT: Atraumatic, Mucous membr. moist/pink Lungs: Other (diminished bases) MUSCULOSKELETAL: Osteoarthritic changes both hands Neuro: Normal speech, Sensation intact Psych/Mental Status: Mental status NL, Mood NL Skin: No breakdown, No significant lesion Diagnosis Problem List Problems Medical Problems: (1) Hypertension Status: Acute (2) Pulmonary edema Status: Acute Assessment Assessment Problems Medical Problems: (1) Hypertension Status: Acute (2) Pulmonary edema Status: Acute FINAL IMPRESSION: 1. Acute pulmonary edema. 2. Malignant hypertension. 3. Elevated troponin. 4. Acute on chronic kidney disease. 5. Smoking. 6. Depression, recent grief, loss of her daughter. PLAN: Pt OFF BIPAP. CT -ve for PE cr 2.8 went up sono kidney ch kidney disease no renal artery stenosi. ECHO 20 % ejf.Low spoke with Renal and cardiology out pt stress test At this time, admit to hospital. Placed on nitroglycerin drip. Cardiology is consulted. Echocardiogram. DVT prophylaxis with Lovenox. Also, get ultrasound of the kidneys and Renal consult and see how she improves in the next 24-48 hours. We will put her on a cholesterol medication as well as aspirin. The patient was placed on BiPAP, will have a pulmonary consult. Plan Plan of Care Problems Medical Problems: (1) Hypertension Status: Acute (2) Pulmonary edema Status: Acute Comment Review of Relevant I have reviewed the following items lubna (where applicable) has been applied. Labs Laboratory Tests Test 02/22/21 09:45 02/22/21 16:15 02/23/21 05:00 Troponin I High Sensitivity 623 ng/L (4-50) 671 ng/L (4-50) 464 ng/L (4-50) White Blood Count 5.1 x10^3/uL (4.0-11.0) Red Blood Count 3.79 x10^6/uL (3.50-5.40) Hemoglobin 10.9 g/dL (12.0-15.5) Hematocrit 33.7 % (36.0-47.0) Mean Corpuscular Volume 89 fL (79-100) Mean Corpuscular Hemoglobin 29 pg (25-35) Mean Corpuscular Hemoglobin Concent 32 g/dL (31-37) Red Cell Distribution Width 13.4 % (11.5-14.5) Platelet Count 179 x10^3/uL (140-400) Neutrophils (%) (Auto) 38 % (31-73) Lymphocytes (%) (Auto) 48 % (24-48) Monocytes (%) (Auto) 10 % (0-9) Eosinophils (%) (Auto) 3 % (0-3) Basophils (%) (Auto) 0 % (0-3) Neutrophils # (Auto) 2.0 x10^3/uL (1.8-7.7) Lymphocytes # (Auto) 2.5 x10^3/uL (1.0-4.8) Monocytes # (Auto) 0.5 x10^3/uL (0.0-1.1) Eosinophils # (Auto) 0.2 x10^3/uL (0.0-0.7) Basophils # (Auto) 0.0 x10^3/uL (0.0-0.2) Sodium Level 143 mmol/L (136-145) Potassium Level 3.4 mmol/L (3.5-5.1) Chloride Level 104 mmol/L (98-107) Carbon Dioxide Level 25 mmol/L (21-32) Anion Gap 14 (6-14) Blood Urea Nitrogen 34 mg/dL (7-20) Creatinine 2.8 mg/dL (0.6-1.0) Estimated GFR (Cockcroft-Gault) 19.5 Glucose Level 91 mg/dL (70-99) Calcium Level 8.6 mg/dL (8.5-10.1) Microbiology 02/22/21 Urine Culture - Final, Complete Medications Current Medications Acetaminophen/ Hydrocodone Bitart (Lortab 5/325) 1 tab PRN Q6HRS PRN PO PAIN Last administered on 02/23/21at 08:19; Start 02/22/21 at 17:30 Amlodipine Besylate (Norvasc) 10 mg DAILY PO ; Start 02/23/21 at 09:00 Atorvastatin Calcium (Lipitor) 20 mg QHS PO ; Start 02/22/21 at 21:00; Stop 02/22/21 at 12:04; Status DC Atorvastatin Calcium (Lipitor) 20 mg QHS PO Last administered on 02/22/21at 20:51; Start 02/22/21 at 21:00 Bupropion HCl (Wellbutrin) 75 mg QDC800 PO Last administered on 02/22/21at 20:52; Start 02/22/21 at 14:00 Hydralazine HCl (Apresoline) 25 mg BID PO ; Start 02/22/21 at 12:30 Isosorbide Mononitrate (Imdur) 30 mg DAILY PO Last administered on 02/22/21at 12:24; Start 02/22/21 at 12:30 Nicotine (Nicoderm Cq 14mg) 1 patch DAILY TD Last administered on 02/22/21at 12:23; Start 02/22/21 at 12:00 Vitals/I & O Vital Sign - Last 24 Hours 02/22/21 02/22/21 02/22/21 02/22/21 10:00 11:00 11:00 12:08 Pulse 89 78 82 79 Resp B/P (MAP) 154/94 (114) 139/80 144/55 (84) 159/90 Pulse Ox 100 100 100 99 O2 Delivery Nasal Cannula Room Air Nasal Cannula Room Air O2 Flow Rate 2.0 2.0 02/22/21 02/22/21 02/22/21 02/22/21 12:09 12:24 16:00 18:18 Temp 98.0 98.0 Pulse 79 79 94 94 Resp 20 B/P (MAP) 159/90 159/90 134/79 134/79 Pulse Ox 98 O2 Delivery Nasal Cannula O2 Flow Rate 2.0 02/22/21 02/22/21 02/22/21 02/22/21 18:18 18:48 20:00 20:00 Temp 98.4 98.4 Pulse 87 Resp 20 B/P (MAP) 92/63 Pulse Ox 98 98 100 O2 Delivery Nasal Cannula Nasal Cannula Nasal Cannula Nasal Cannula O2 Flow Rate 2.0 2.0 2.0 2.0 02/22/21 02/23/21 02/23/21 21:00 00:00 04:00 Temp 98.3 98.3 98.3 98.3 Pulse 87 70 74 Resp 12 14 B/P (MAP) 92/63 133/65 114/57 Pulse Ox 100 100 O2 Delivery Nasal Cannula Nasal Cannula O2 Flow Rate 2.0 2.0 Intake and Output 02/22/21 02/22/21 02/23/21 15:00 23:00 07:00 Intake Total 500 ml 240 ml Output Total 2000 ml 0 ml 0 ml Balance -1500 ml 240 ml 0 ml Justifications for Admission Other Justification Nutrition Consultation Dietary Evaluation: Recommendations by RD: Dietary education by RD Comments: continue with cardiac diet, oral nutrition supplements prn Expected Outcomes/Goals: to meet >75% est nutr needs Malnutrition Findings: Body Fat Depletion (Non Severe: Mod to Severe Weight Status: Underweight YARELI ARCE MD Feb 23, 2021 09:24
[2021-02-23] MEDS: buPROPion 75 MG TABLET. PO SCH ×3 (09:25→20:09)
[2021-02-23] MEDS: ISOSORBIDE MONONITRATE ER 30 MG TAB.ER.24H PO SCH (09:25)
[2021-02-23] MEDS: CARVEDILOL 6.25 MG TABLET. PO SCH ×2 (09:25→15:42)
[2021-02-23] MEDS: HEPARIN for SUB-Q USE 5,000 UNIT/ML VIAL. SQ SCH ×2 (09:35→20:17)
[2021-02-23 11:00] VITALS: BP 111/57
[2021-02-23] MEDS ORDERED: FUROSEMIDE 40 MG/4 ML VIAL. IVP ONE (12:30)
[2021-02-23] MEDS ORDERED: POTASSIUM CHLORIDE 20 MEQ TABLET.ER. PO ONE (12:30)
--- NOTE | 2021-02-23 12:35 | PDOC ---
MINOO GARCIA SUPERVISOR MARBLE 02/23/21 1235: CARDIO Progress Notes Date and Time Date of Service 02/23/2021 Time of Evaluation 1210 Subjective Subjective: No Chest Pain, No shortness of breath, No Palpitations Vitals Vitals Vital Signs Date Time Temp Pulse Resp B/P (MAP) Pulse Ox O2 Delivery O2 Flow Rate FiO2 02/23/21 11:00 97.9 83 18 111/57 (75) 100 Room Air 97.9 02/23/21 04:00 2.0 Weight Weight [ ] Input and Output Intake and Output Intake and Output 02/23/21 07:00 Intake Total 740 ml Output Total 2000 ml Balance -1260 ml Intake Oral 740 ml Output Urine Total 2000 ml # Voids 10 Laboratory Labs Laboratory Tests Test 02/22/21 16:15 02/23/21 05:00 Troponin I High Sensitivity 671 ng/L (4-50) 464 ng/L (4-50) White Blood Count 5.1 x10^3/uL (4.0-11.0) Red Blood Count 3.79 x10^6/uL (3.50-5.40) Hemoglobin 10.9 g/dL (12.0-15.5) Hematocrit 33.7 % (36.0-47.0) Mean Corpuscular Volume 89 fL (79-100) Mean Corpuscular Hemoglobin 29 pg (25-35) Mean Corpuscular Hemoglobin Concent 32 g/dL (31-37) Red Cell Distribution Width 13.4 % (11.5-14.5) Platelet Count 179 x10^3/uL (140-400) Neutrophils (%) (Auto) 38 % (31-73) Lymphocytes (%) (Auto) 48 % (24-48) Monocytes (%) (Auto) 10 % (0-9) Eosinophils (%) (Auto) 3 % (0-3) Basophils (%) (Auto) 0 % (0-3) Neutrophils # (Auto) 2.0 x10^3/uL (1.8-7.7) Lymphocytes # (Auto) 2.5 x10^3/uL (1.0-4.8) Monocytes # (Auto) 0.5 x10^3/uL (0.0-1.1) Eosinophils # (Auto) 0.2 x10^3/uL (0.0-0.7) Basophils # (Auto) 0.0 x10^3/uL (0.0-0.2) Sodium Level 143 mmol/L (136-145) Potassium Level 3.4 mmol/L (3.5-5.1) Chloride Level 104 mmol/L (98-107) Carbon Dioxide Level 25 mmol/L (21-32) Anion Gap 14 (6-14) Blood Urea Nitrogen 34 mg/dL (7-20) Creatinine 2.8 mg/dL (0.6-1.0) Estimated GFR (Cockcroft-Gault) 19.5 Glucose Level 91 mg/dL (70-99) Calcium Level 8.6 mg/dL (8.5-10.1) Microbiology Micro Microbiology 02/22/21 Urine Culture - Final, Complete Physical Exam HEENT: Neck Supple W Full Motion Chest: Symmetric LUNGS: Other (diminished bases) Heart: RRR (SR) Abdomen: Soft N/T Extremities: No Edema, No Calf Tenderness Neurology: alert, oriented, follow commands Assessment Assessment 1. Acute systolic CHF: compensated 2. Malignant HTN: controlled 3. RAMON on CKD: unknown baseline 4. Depression: per PCP 5. Tobaccoism 6. Mild trop elevation: suspect demand mediated, type 2 due to CHF and HTN 7. PVCs 8. Cardiomyopathy: EF 20% Recommendations 1. Continue norvasc and coreg. No losartan with RAMON. Continue low dose hydralazine and imdur 2. Start on ASA and statin 3. Lasix therapy 4. HF educations 2 L FR 5. Smoking cessation 6. Outpt stress test. FOllow up in office. Justicifation of Admission Dx: Justifications for Admission: Justification of Admission Dx: N/A UMA CRISOSTOMO MD 02/23/211945: CARDIO Progress Notes Plan Plan The patient was seen and interviewed as well as examined at the bedside. The chart was reviewed. The case was discussed. Agree with the plan of care. Discussed with Dr. Munoz. Plan for outpt ischemic testing. MINOO GARCIA APRN Feb 23, 2021 12:35 UMA CRISOSTOMO MD Feb 23, 2021 19:46
[2021-02-23 15:00] VITALS: BP 119/64
--- NOTE | 2021-02-23 15:09 | NUR ---
SS following up with discharge planing. SS reviewed pt chart and discussed with pt RN. Pt is currently on room air. PT/OT ordered and pt declined today. Discharge plan is currently to home when medically ready for discharge. SS will continue to follow for discharge planning.
[2021-02-23 19:25] VITALS: BP 140/73
[2021-02-23] MEDS: ATORVASTATIN CALCIUM 20 MG TABLET PO SCH (20:11)
[2021-02-23 23:10] VITALS: BP 139/77
[2021-02-24 03:50] VITALS: BP 143/72
[2021-02-24 04:52] LABS: BASO % 0 % (0-3); EOS # 0.2 x10^3/uL (0.0-0.7); EOS % 4 % (0-3); HEMATOCRIT 35.7 % (36.0-47.0); HEMOGLOBIN 11.6 g/dL (12.0-15.5); LYMPH # 2.5 x10^3/uL (1.0-4.8); LYMPH % 43 % (24-48); MEAN CORPUSCULAR HEMOGLOBIN 29 pg (25-35); MEAN CORPUSCULAR HGB CONC 33 g/dL (31-37); MEAN CORPUSCULAR VOLUME 90 fL (79-100); MONO # 0.6 x10^3/uL (0.0-1.1); MONO % 10 % (0-9); NEUT # 2.4 x10^3/uL (1.8-7.7); NEUT % 43 % (31-73); PLATELET COUNT 195 x10^3/uL (140-400); RED BLOOD COUNT 3.96 x10^6/uL (3.50-5.40); RED CELL DISTRIBUTION WIDTH 13.4 % (11.5-14.5); WHITE BLOOD COUNT 5.7 x10^3/uL (4.0-11.0)
[2021-02-24 05:11] LABS: CALCIUM 8.8 mg/dL (8.5-10.1); CREATININE 2.8 mg/dL (0.6-1.0); GFR 19.5; POTASSIUM 3.4 mmol/L (3.5-5.1)
[2021-02-24 07:00] VITALS: BP 173/93
[2021-02-24] MEDS: hydrALAZINE 25 MG TABLET PO SCH (08:29)
[2021-02-24] MEDS: CARVEDILOL 6.25 MG TABLET. PO SCH (08:29)
[2021-02-24] MEDS: buPROPion 75 MG TABLET. PO SCH ×2 (08:29→14:53)
[2021-02-24] MEDS: NICOTINE 14MG PATCH. TD SCH (08:30)
[2021-02-24] MEDS: ASPIRIN ENTERIC COATED 81 MG TABLET.DR. PO SCH (08:30)
[2021-02-24] MEDS: ISOSORBIDE MONONITRATE ER 30 MG TAB.ER.24H PO SCH (08:30)
[2021-02-24] MEDS: HYDROcodone/APAP 5/325MG 1 TAB TABLET PO PRN ×2 (08:36→14:53)
[2021-02-24] MEDS: HEPARIN for SUB-Q USE 5,000 UNIT/ML VIAL. SQ SCH (08:44)
[2021-02-24] MEDS ORDERED: FUROSEMIDE 40 MG TABLET. PO SCH (09:00)
[2021-02-24 11:08] VITALS: BP 127/75
--- NOTE | 2021-02-24 12:50 | PDOC ---
PROGRESS NOTES Date of Service: DATE: 02/24/21 TIME: 12:49 Subjective Subjective feels ok Objective Objective Vital Signs Date Time Temp Pulse Resp B/P (MAP) Pulse Ox O2 Delivery O2 Flow Rate FiO2 02/24/21 11:08 97.5 82 20 127/75 (92) 99 Room Air 97.5 Intake and Output 02/24/21 07:00 Intake Total 520 ml Output Total 525 ml Balance -5 ml Intake Oral 520 ml Output Urine Total 525 ml Physical Exam Abdomen: Soft, No tenderness Heart: Regular rate (SR/ST with PVCs), Normal S1, Normal S2, No murmurs Extremities: No cyanosis, No edema General: Alert, Oriented X3, Cooperative, No acute distress HEENT: Atraumatic, Mucous membr. moist/pink Lungs: Other (diminished bases) MUSCULOSKELETAL: Osteoarthritic changes both hands Neuro: Normal speech, Sensation intact Psych/Mental Status: Mental status NL, Mood NL Skin: No breakdown, No significant lesion Diagnosis Problem List Problems Medical Problems: (1) Hypertension Status: Acute (2) Pulmonary edema Status: Acute Assessment Assessment Problems Medical Problems: (1) Hypertension Status: Acute (2) Pulmonary edema Status: Acute FINAL IMPRESSION: 1. Acute pulmonary edema. 2. Malignant hypertension. 3. Elevated troponin. 4. Acute on chronic kidney disease. 5. Smoking. 6. Depression, recent grief, loss of her daughter. PLAN: d/c home today, spoke with both the kids at bedside Pt off BIPAP. CT -ve for PE cr 2.8 stable sono kidney ch kidney disease no renal artery stenosi. ECHO 20 % ejf.Low spoke with Renal and cardiology out pt stress test Plan Plan of Care Problems Medical Problems: (1) Hypertension Status: Acute (2) Pulmonary edema Status: Acute Comment Review of Relevant I have reviewed the following items lubna (where applicable) has been applied. Labs Laboratory Tests Test 02/24/21 03:45 White Blood Count 5.7 x10^3/uL (4.0-11.0) Red Blood Count 3.96 x10^6/uL (3.50-5.40) Hemoglobin 11.6 g/dL (12.0-15.5) Hematocrit 35.7 % (36.0-47.0) Mean Corpuscular Volume 90 fL (79-100) Mean Corpuscular Hemoglobin 29 pg (25-35) Mean Corpuscular Hemoglobin Concent 33 g/dL (31-37) Red Cell Distribution Width 13.4 % (11.5-14.5) Platelet Count 195 x10^3/uL (140-400) Neutrophils (%) (Auto) 43 % (31-73) Lymphocytes (%) (Auto) 43 % (24-48) Monocytes (%) (Auto) 10 % (0-9) Eosinophils (%) (Auto) 4 % (0-3) Basophils (%) (Auto) 0 % (0-3) Neutrophils # (Auto) 2.4 x10^3/uL (1.8-7.7) Lymphocytes # (Auto) 2.5 x10^3/uL (1.0-4.8) Monocytes # (Auto) 0.6 x10^3/uL (0.0-1.1) Eosinophils # (Auto) 0.2 x10^3/uL (0.0-0.7) Basophils # (Auto) 0.0 x10^3/uL (0.0-0.2) Sodium Level 143 mmol/L (136-145) Potassium Level 3.4 mmol/L (3.5-5.1) Chloride Level 104 mmol/L (98-107) Carbon Dioxide Level 25 mmol/L (21-32) Anion Gap 14 (6-14) Blood Urea Nitrogen 39 mg/dL (7-20) Creatinine 2.8 mg/dL (0.6-1.0) Estimated GFR (Cockcroft-Gault) 19.5 Glucose Level 94 mg/dL (70-99) Calcium Level 8.8 mg/dL (8.5-10.1) Microbiology 02/22/21 Urine Culture - Final, Complete Medications Current Medications Furosemide (Lasix) 40 mg DAILY PO Last administered on 02/24/21at 08:30; Start 02/24/21 at 09:00 Vitals/I & O Vital Sign - Last 24 Hours 02/23/21 02/23/21 02/23/21 02/23/21 15:00 15:42 19:25 20:10 Temp 97.8 98.5 97.8 98.5 Pulse 85 85 87 83 Resp 18 21 B/P (MAP) 119/64 (82) 119/64 140/73 (95) 140/73 Pulse Ox 100 98 O2 Delivery Room Air Room Air 02/23/21 02/23/21 02/24/21 02/24/21 20:20 23:10 03:50 07:00 Temp 98.1 98.1 97.7 98.1 98.1 97.7 Pulse 86 80 84 Resp 20 18 20 B/P (MAP) 139/77 (97) 143/72 (95) 173/93 (119) Pulse Ox 100 98 100 O2 Delivery Room Air Room Air Room Air Room Air 02/24/21 02/24/21 02/24/21 02/24/21 08:00 08:28 08:29 08:29 Pulse 84 84 84 B/P (MAP) 173/93 173/93 173/93 O2 Delivery Room Air 02/24/21 02/24/21 02/24/21 02/24/21 08:30 08:36 09:10 11:08 Temp 97.5 97.5 Pulse 84 82 Resp 20 20 20 B/P (MAP) 173/93 127/75 (92) Pulse Ox 93 93 99 O2 Delivery Room Air Room Air Room Air Intake and Output 02/23/21 02/23/21 02/24/21 15:00 23:00 07:00 Intake Total 300 ml 120 ml 100 ml Output Total 525 ml Balance 300 ml 120 ml -425 ml Justifications for Admission Other Justification Nutrition Consultation Dietary Evaluation: Recommendations by RD: Dietary education by RD Comments: continue with cardiac diet, oral nutrition supplements prn Expected Outcomes/Goals: to meet >75% est nutr needs Malnutrition Findings: Body Fat Depletion (Non Severe: Mod to Severe Weight Status: Underweight YARELI ARCE MD Feb 24, 2021 12:50
[2021-02-24] MEDS ORDERED: NITR0.4T24 SL (13:00)
[2021-02-24] MEDS ORDERED: FURO40TA4 PO (13:00)
[2021-02-24] MEDS ORDERED: AMLO-187 PO (13:00)
[2021-02-24] MEDS ORDERED: ATOR20TA58 PO (13:00)
[2021-02-24] MEDS ORDERED: HYDR-2761 PO (13:00)
[2021-02-24] MEDS ORDERED: CARV6.2511 PO (13:00)
[2021-02-24] MEDS ORDERED: ASPI-886 PO (13:00)
[2021-02-24] MEDS ORDERED: Nicotine 14MG TD (13:00)
[2021-02-24] MEDS ORDERED: HYDR-2868 PO (13:00)
[2021-02-24] MEDS ORDERED: ISOS30TA68 PO (13:00)
--- NOTE | 2021-02-24 13:45 | PDOC ---
PROGRESS NOTES Date of Service DATE: 02/24/21 TIME: 13:43 Subjective Subjective Patient seen and examined Objective Objective Vital Signs Date Time Temp Pulse Resp B/P (MAP) Pulse Ox O2 Delivery O2 Flow Rate FiO2 02/24/21 11:08 97.5 82 20 127/75 (92) 99 Room Air 97.5 02/23/21 04:00 2.0 Intake and Output 02/24/21 07:00 Intake Total 520 ml Output Total 525 ml Balance -5 ml Intake Oral 520 ml Output Urine Total 525 ml Physical Exam Abdomen: Normal bowel sounds Heart: Regular rate General: mild distress Lungs: Other (Mildly decreased breath sounds) Assessment Assessment Problems Medical Problems: (1) Hypertension Status: Acute (2) Pulmonary edema Status: Acute Acute systolic CHF: compensated. Continuing present medications. Malignant HTN: controlled RAMON on CKD: unknown baseline Depression: per PCP Tobaccoism Mild trop elevation: suspect demand mediated, type 2 due to CHF and HTN. Continue medical treatment. Outpatient stress testing. Office follow-up. PVCs. Continue present treatment. Cardiomyopathy: EF 20% Comment Review of Relevant I have reviewed the following items lubna (where applicable) has been applied. Labs Laboratory Tests Test 02/22/21 16:15 02/23/21 05:00 02/24/21 03:45 Troponin I High Sensitivity 671 ng/L (4-50) 464 ng/L (4-50) White Blood Count 5.1 x10^3/uL (4.0-11.0) 5.7 x10^3/uL (4.0-11.0) Red Blood Count 3.79 x10^6/uL (3.50-5.40) 3.96 x10^6/uL (3.50-5.40) Hemoglobin 10.9 g/dL (12.0-15.5) 11.6 g/dL (12.0-15.5) Hematocrit 33.7 % (36.0-47.0) 35.7 % (36.0-47.0) Mean Corpuscular Volume 89 fL (79-100) 90 fL (79-100) Mean Corpuscular Hemoglobin 29 pg (25-35) 29 pg (25-35) Mean Corpuscular Hemoglobin Concent 32 g/dL (31-37) 33 g/dL (31-37) Red Cell Distribution Width 13.4 % (11.5-14.5) 13.4 % (11.5-14.5) Platelet Count 179 x10^3/uL (140-400) 195 x10^3/uL (140-400) Neutrophils (%) (Auto) 38 % (31-73) 43 % (31-73) Lymphocytes (%) (Auto) 48 % (24-48) 43 % (24-48) Monocytes (%) (Auto) 10 % (0-9) 10 % (0-9) Eosinophils (%) (Auto) 3 % (0-3) 4 % (0-3) Basophils (%) (Auto) 0 % (0-3) 0 % (0-3) Neutrophils # (Auto) 2.0 x10^3/uL (1.8-7.7) 2.4 x10^3/uL (1.8-7.7) Lymphocytes # (Auto) 2.5 x10^3/uL (1.0-4.8) 2.5 x10^3/uL (1.0-4.8) Monocytes # (Auto) 0.5 x10^3/uL (0.0-1.1) 0.6 x10^3/uL (0.0-1.1) Eosinophils # (Auto) 0.2 x10^3/uL (0.0-0.7) 0.2 x10^3/uL (0.0-0.7) Basophils # (Auto) 0.0 x10^3/uL (0.0-0.2) 0.0 x10^3/uL (0.0-0.2) Sodium Level 143 mmol/L (136-145) 143 mmol/L (136-145) Potassium Level 3.4 mmol/L (3.5-5.1) 3.4 mmol/L (3.5-5.1) Chloride Level 104 mmol/L (98-107) 104 mmol/L (98-107) Carbon Dioxide Level 25 mmol/L (21-32) 25 mmol/L (21-32) Anion Gap 14 (6-14) 14 (6-14) Blood Urea Nitrogen 34 mg/dL (7-20) 39 mg/dL (7-20) Creatinine 2.8 mg/dL (0.6-1.0) 2.8 mg/dL (0.6-1.0) Estimated GFR (Cockcroft-Gault) 19.5 19.5 Glucose Level 91 mg/dL (70-99) 94 mg/dL (70-99) Calcium Level 8.6 mg/dL (8.5-10.1) 8.8 mg/dL (8.5-10.1) Laboratory Tests Test 02/24/21 03:45 White Blood Count 5.7 x10^3/uL (4.0-11.0) Red Blood Count 3.96 x10^6/uL (3.50-5.40) Hemoglobin 11.6 g/dL (12.0-15.5) Hematocrit 35.7 % (36.0-47.0) Mean Corpuscular Volume 90 fL (79-100) Mean Corpuscular Hemoglobin 29 pg (25-35) Mean Corpuscular Hemoglobin Concent 33 g/dL (31-37) Red Cell Distribution Width 13.4 % (11.5-14.5) Platelet Count 195 x10^3/uL (140-400) Neutrophils (%) (Auto) 43 % (31-73) Lymphocytes (%) (Auto) 43 % (24-48) Monocytes (%) (Auto) 10 % (0-9) Eosinophils (%) (Auto) 4 % (0-3) Basophils (%) (Auto) 0 % (0-3) Neutrophils # (Auto) 2.4 x10^3/uL (1.8-7.7) Lymphocytes # (Auto) 2.5 x10^3/uL (1.0-4.8) Monocytes # (Auto) 0.6 x10^3/uL (0.0-1.1) Eosinophils # (Auto) 0.2 x10^3/uL (0.0-0.7) Basophils # (Auto) 0.0 x10^3/uL (0.0-0.2) Sodium Level 143 mmol/L (136-145) Potassium Level 3.4 mmol/L (3.5-5.1) Chloride Level 104 mmol/L (98-107) Carbon Dioxide Level 25 mmol/L (21-32) Anion Gap 14 (6-14) Blood Urea Nitrogen 39 mg/dL (7-20) Creatinine 2.8 mg/dL (0.6-1.0) Estimated GFR (Cockcroft-Gault) 19.5 Glucose Level 94 mg/dL (70-99) Calcium Level 8.8 mg/dL (8.5-10.1) Microbiology 02/22/21 Urine Culture - Final, Complete Medications Current Medications Nitroglycerin/ Dextrose 250 ml @ 1.5 mls/hr 1X ONCE IV ; Start 02/21/21 at 22:00; Stop 02/28/21 at 20:39 Nitroglycerin (Nitrostat) 0.4 mg STK-MED ONCE SL ; Start 02/21/21 at 21:34; Stop 02/21/21 at 21:34; Status DC Nitroglycerin (Nitrostat) 0.4 mg PRN Q5MIN PRN SL CHEST PAIN Last administered on 02/21/21at 20:40; Start 02/21/21 at 22:00 Furosemide (Lasix) 40 mg 1X ONCE IVP Last administered on 02/22/21at 02:12; Start 02/22/21 at 02:15; Stop 02/22/21 at 02:16; Status DC Amlodipine Besylate (Norvasc) 5 mg 1X ONCE PO Last administered on 02/22/21at 02:13; Start 02/22/21 at 02:15; Stop 02/22/21 at 02:16; Status DC Amlodipine Besylate (Norvasc) 5 mg DAILY PO Last administered on 02/22/21at 07:38; Start 02/22/21 at 09:00; Stop 02/22/21 at 08:09; Status DC Amlodipine Besylate (Norvasc) 5 mg 1X ONCE PO Last administered on 02/22/21at 03:58; Start 02/22/21 at 04:00; Stop 02/22/21 at 04:02; Status DC Furosemide (Lasix) 40 mg 1X ONCE IVP Last administered on 02/22/21at 08:30; Start 02/22/21 at 08:00; Stop 02/22/21 at 08:01; Status DC Aspirin (Ecotrin) 81 mg DAILYWBKFT PO Last administered on 02/24/21at 08:30; Start 02/22/21 at 08:00 Amlodipine Besylate (Norvasc) 5 mg 1X ONCE PO Last administered on 02/22/21 08:29; Start 02/22/21 at 08:00; Stop 02/22/21 at 08:01; Status DC Amlodipine Besylate (Norvasc) 10 mg DAILY PO Last administered on 02/24/21 08:28; Start 02/23/21 at 09:00 Carvedilol (Coreg) 6.25 mg BIDWMEALS PO Last administered on 02/24/21 08:29; Start 02/22/21 at 08:00 Atorvastatin Calcium (Lipitor) 20 mg QHS PO ; Start 02/22/21 at 21:00; Stop 02/22/21 at 12:04; Status DC Heparin Sodium (Porcine) (Heparin Sodium) 5,000 unit Q12HR SQ Last administered on 02/24/21 08:44; Start 02/22/21 at 09:15 Bupropion HCl (Wellbutrin) 75 mg [id number] PO Last administered on 02/24/21 08:29; Start 02/22/21 at 14:00 Nicotine (Nicoderm Cq 14mg) 1 patch DAILY TD Last administered on 02/24/21 08:30; Start 02/22/21 at 12:00 Hydralazine HCl (Apresoline) 25 mg BID PO Last administered on 02/24/21 08:29; Start 02/22/21 at 12:30 Isosorbide Mononitrate (Imdur) 30 mg DAILY PO Last administered on 02/24/21 08:30; Start 02/22/21 at 12:30 Atorvastatin Calcium (Lipitor) 20 mg QHS PO Last administered on 02/23/21at 20:11; Start 02/22/21 at 21:00 Acetaminophen/ Hydrocodone Bitart (Lortab 5/325) 1 tab PRN Q6HRS PRN PO PAIN Last administered on 02/24/21 08:36; Start 02/22/21 at 17:30 Furosemide (Lasix) 40 mg 1X ONCE IVP Last administered on 02/23/21 13:29; Start 02/23/21 at 12:30; Stop 02/23/21 at 12:53; Status DC Furosemide (Lasix) 40 mg DAILY PO Last administered on 02/24/21at 08:30; Start 02/24/21 at 09:00 Potassium Chloride (Klor-Con) 20 meq 1X ONCE PO Last administered on 02/23/21at 13:26; Start 02/23/21 at 12:30; Stop 02/23/21 at 12:53; Status DC Active Scripts Active Hydrocodone-Apap 5-325 (Hydrocodone Bit/Acetaminophen) 1 Tab Tablet 1 Tab PO PRN BID PRN 30 Days Furosemide 40 Mg Tablet 40 Mg PO DAILY 30 Days Aspirin Ec (Aspirin) 81 Mg Tablet.dr 81 Mg PO DAILYWBKFT 30 Days Amlodipine Besylate 10 Mg Tablet 10 Mg PO DAILY 30 Days Carvedilol (Carvedilol) 6.25 Mg Tablet 6.25 Mg PO BIDWMEALS 30 Days Nitrostat (Nitroglycerin) 0.4 Mg Tab.subl 0.4 Mg SL PRN Q5MIN PRN 30 Days Isosorbide Mononitrate Er (Isosorbide Mononitrate) 30 Mg Tab.er.24h 30 Mg PO DAILY 30 Days Hydralazine Hcl 25 Mg Tablet 25 Mg PO BID 30 Days Atorvastatin Calcium 20 Mg Tablet 20 Mg PO QHS 30 Days [Nicotine 14MG] 1 PATCH Patch 1 Patch TD DAILY 30 Days Vitals/I & O Vital Sign - Last 24 Hours 02/23/21 02/23/21 02/23/21 02/23/21 15:00 15:42 19:25 20:10 Temp 97.8 98.5 97.8 98.5 Pulse 85 85 87 83 Resp B/P (MAP) 119/64 (82) 119/64 140/73 (95) 140/73 Pulse Ox 100 98 O2 Delivery Room Air Room Air 02/23/21 02/23/21 02/24/21 02/24/21 20:20 23:10 03:50 07:00 Temp 98.1 98.1 97.7 98.1 98.1 97.7 Pulse 86 80 84 Resp B/P (MAP) 139/77 (97) 143/72 (95) 173/93 (119) Pulse Ox 100 98 100 O2 Delivery Room Air Room Air Room Air Room Air 02/24/21 02/24/21 02/24/21 02/24/21 08:00 08:28 08:29 08:29 Pulse 84 84 84 B/P (MAP) 173/93 173/93 173/93 O2 Delivery Room Air 02/24/21 02/24/21 02/24/21 02/24/21 08:30 08:36 09:10 11:08 Temp 97.5 97.5 Pulse 84 82 Resp 20 B/P (MAP) 173/93 127/75 (92) Pulse Ox 93 93 99 O2 Delivery Room Air Room Air Room Air Intake and Output 02/23/21 02/23/21 02/24/21 15:00 23:00 07:00 Intake Total 300 ml 120 ml 100 ml Output Total 525 ml Balance 300 ml 120 ml -425 ml Justifications for Admission Other Justification Nutrition Consultation Dietary Evaluation: Recommendations by RD: Dietary education by RD Comments: continue with cardiac diet, oral nutrition supplements prn Expected Outcomes/Goals: to meet >75% est nutr needs Malnutrition Findings: Body Fat Depletion (Non Severe: Mod to Severe Weight Status: Underweight BEAU DUMONT MD Feb 24, 2021 13:45
[2021-02-24] MEDS ORDERED: ALBUTEROL SULFATE 2.5 MG/3 ML NEBU. INH PRN (14:45)
== END 2021-02-24 15:10 | disposition home or self-care (01) | DRG 291 ==
LOC: ER 20:50 → 1 WEST ICU 22:51 → 6 SOUTH 02-23 06:45
PROVIDERS: ADMIT Internal Medicine; ATTEND Internal Medicine
PROC: 5A09357 Assistance with Respiratory Ventilation, Less than 24 Consecutive Hours, Continuous Positive Airway Pressure (ICD-10-PCS; principal; 2021-02-21)
PROC: 5A09357 Assistance with Respiratory Ventilation, Less than 24 Consecutive Hours, Continuous Positive Airway Pressure (ICD-10-PCS; 2021-02-22)
DX: I13.0 Hypertensive heart and chronic kidney disease with heart failure and stage 1 through stage 4 chronic kidney disease, or unspecified chronic kidney disease (principal); I50.43 Acute on chronic combined systolic (congestive) and diastolic (congestive) heart failure; J96.01 Acute respiratory failure with hypoxia; N17.9 Acute kidney failure, unspecified; F17.210 Nicotine dependence, cigarettes, uncomplicated; I42.9 Cardiomyopathy, unspecified; F32.A Depression, unspecified; I49.3 Ventricular premature depolarization; J44.9 Chronic obstructive pulmonary disease, unspecified; N18.9 Chronic kidney disease, unspecified; Z82.49 Family history of ischemic heart disease and other diseases of the circulatory system; F41.9 Anxiety disorder, unspecified; M19.90 Unspecified osteoarthritis, unspecified site
CPT/HCPCS: 36415; 71045; 71250; 76770; 80048; 80053; 80061; 81001; 83735; 83880; 84443; 84484; 85007; 85025; 87086; 93005; 93306; 93975; 94660; J1644; J1940; 99285-25; G0378

== ENCOUNTER 2021-02-26 12:07 | Emergency (ER) | payer MEDICARE ==
[~2021-02-26] VITALS: Ht 154.9 cm; Wt 39.5 kg
[~2021-02-26 12:07] MED LIST: AMLO-187 PO; ASPI-886 PO; ATOR20TA58 PO; CARV6.2511 PO; FURO40TA4 PO; HYDR-2761 PO; HYDR-2868 PO; ISOS30TA68 PO; NITR0.4T24 SL; Nicotine 14MG TD
--- NOTE | 2021-02-26 12:24 | PHYS DOC ---
Past Medical History Past Medical History: CHF, Hypertension, Renal Disease Past Surgical History: No Surgical History Smoking Status: Current Every Day Smoker Alcohol Use: Occasionally General Adult EDM: Chief Complaint: WEAKNESS/GENERALIZED HPI: HPI: Patient is a 85 year old female with history of HTN, CKD, cardiomyopathy with EF 20% who presents with a syncopal episode at home this morning. Was recently admitted for acute hypertensive episode with pulmonary edema. Was started on a new regimen for antihypertensives. Was feeling well this morning, took her antihypertensives. She went to the restroom on a bedside commode in her room. She was trying to use the restroom when she had a syncopal episode. Witnessed by family. SBP following the episode was reportedly 70s. She denies any preceding chest pain, palpitations, or shortness of breath. Maintains that she has none of the symptoms currently. She is feeling fatigued, but is otherwise feeling closer to her baseline. Patient is unsure of her home meds, but her chart indicates that she may be on: -Furosemide -Carvedilol -Amlodipine -Hydralazine -Isosorbide mononitrate Review of Systems: Review of Systems: Constitutional: Denies fever or chills. [] Eyes: Denies change in visual acuity. [] HENT: Denies nasal congestion or sore throat. [] Respiratory: Denies cough or shortness of breath. [] Cardiovascular: Reports syncopal/generalized weakness episode. denies chest pain or edema. [] GI: Denies abdominal pain, nausea, vomiting, bloody stools or diarrhea. [] : Denies dysuria. [] Musculoskeletal: Denies back pain or joint pain. [] Integument: Denies rash. [] Neurologic: Denies headache, focal weakness or sensory changes. [] Endocrine: Denies polyuria or polydipsia. [] Lymphatic: Denies swollen glands. [] Psychiatric: Denies depression or anxiety. [] Heart Score: C/O Chest Pain: No Allergies: Allergies: Allergies Coded Allergies Type Severity Reaction Last Updated Verified No Known Drug Allergies 02/21/21 No Physical Exam: PE: Constitutional: Well developed, well nourished, no acute distress, non-toxic appearance. [] HENT: Normocephalic, atraumatic Neck: Normal range of motion, no tenderness, supple, no stridor. [] Cardiovascular:Heart rate regular rhythm, no murmur [] Lungs & Thorax: Bilateral breath sounds clear to auscultation. normal work of breathing. [] Abdomen: Bowel sounds normal, soft, no tenderness, no masses, no pulsatile masses. [] Skin: Warm, dry, no erythema, no rash. [] Back: No tenderness, no CVA tenderness. [] Extremities: No lower extremity edema, warm, well perfused. [] Neurologic: Alert and oriented X 3, normal motor function, normal sensory function, no focal deficits noted. [] Psychologic: Affect normal, judgement normal EKG: EKG: Sinus rhythm. Rate 67. Normal axis. Normal intervals. QTc 455. T wave inversions V3V5 and lead II. Appears similar to previous tracing on 02/22/2021[] Radiology/Procedures: Radiology/Procedures: [] Impression: [facility] [address] [place], [place] [id number] IMAGING REPORT Signed PATIENT: NORRIS ASHFORD ACCOUNT: [id number] : 1935 LOCATION: ER AGE: 85 SEX: F EXAM STATUS: PRE ER ORD. PHYSICIAN: SERENA MALDONADO MD REASON: cardiomyopathy, syncope blood work 12:40 PROCEDURE: CHEST AP ONLY Single view of the chest. 02/26/2021 12:53 PM Indication: Reason: cardiomyopathy, syncope blood work 12:40 Comparison: Chest radiograph February 21, 2021 Findings: Significant improvement in interstitial and basilar infiltrates in the interim. Mild left basilar scarring or atelectasis persists. Cardiomegaly persists. No pneumothorax or pleural effusion is seen. No acute osseous changes are identified. IMPRESSION: Improved interstitial and basilar infiltrates in the interim. No evidence of acute cardiopulmonary process is seen Electronically signed by: Speedy Gómez MD (02/26/2021 1:15 PM) [id number] DICTATED and SIGNED BY: SPEEDY GÓMEZ MD DATE: 02/26/21 [id number] 0 Course & Med Decision Making: Course & Med Decision Making Pertinent Labs and Imaging studies reviewed. (See chart for details) Patient 85-year-old female with history of CKD, HTN, cardiomyopathy with EF 20% and recent hospitalization for hypertensive emergency who presents with a syncopal episode during a bowel movement. Initial BP was reportedly 70s systolic. On arrival is alert, oriented, no distress, with a blood pressure 131/70. She is feeling back to her baseline. EKG appears at baseline with T wave inversions in the anterior and lateral leads. She is on multiple antihypertensives as listed in HPI and history supports dx of a vasovagal episode related to her BM. We will check labs including troponin, chest x-ray, orthostatic vital signs and reassess. 1226 High-sensitivity troponin 74, BNP ~4500 both markedly improved from her most recent hospitalization. No chest pain to indicate new coronary occlusive event, will check one more level to ensure troponin is stable. Creatinine at recent baseline 2.9. Chest x-ray improved from her recent hospitalization. Supine vital signs remain stable, latest BP 115/58, heart rate 76. She continues to be well-appearing. We will check orthostatic vital signs, but help determine the most appropriate disposition. 1340 Orthostatic BP normal. Not symptomatic with standing. Feeling at baseline. If delta troponin stable, feel she can be safely discharged after a likely vasovagal incident. Asked to call her PCP's office to schedule a follow up appointment. 1348 Delta trop 70. Reviewed blood pressure logs with patient's family. It did show that she has had several episodes of bradycardia in the 30s and 40s for last 2 days. This morning, prior to administration of her morning BP meds her heart rate was 40. I called and discussed the medications with her PCP, Dr. Arce, we agreed to discontinue her carvedilol for the time being and continue her other BP meds. We agreed on discharge with close follow up. 1427 Dragon Disclaimer: Tricia Disclaimer: This electronic medical record was generated, in whole or in part, using a voice recognition dictation system. Departure Departure Impression: Primary Impression: Vasovagal syncope Disposition: 01 HOME / SELF CARE / HOMELESS Condition: STABLE Referrals: YARELI ARCE MD (PCP) Call your PCPs office today to schedule follow-up appointment. Additional Instructions: PLEASE stop your Carvedilol. Continue taking the rest of your medications as prescribed. Your labs and chest x-ray are much improved from your recent hospitalization. Please try to take your blood pressure once daily and take note of that number in a journal. Please call your primary care doctor to schedule a follow-up appointment, take this journal with you, so they can tailor your blood pressure medications appropriately. If you develop high fevers, shaking chills, recurrent lightheadedness, chest pain, shortness of breath, or other new/concerning symptoms please return to the emergency department for reevaluation. SERENA MALDONADO MD Feb 26, 2021 12:24
[2021-02-26 12:46] LABS: BASO # 0.1 x10^3/uL (0.0-0.2); BASO % 2 % (0-3); EOS # 0.1 x10^3/uL (0.0-0.7); EOS % 1 % (0-3); HEMATOCRIT 37.8 % (36.0-47.0); HEMOGLOBIN 12.3 g/dL (12.0-15.5); LYMPH # 1.6 x10^3/uL (1.0-4.8); LYMPH % 26 % (24-48); MEAN CORPUSCULAR HEMOGLOBIN 29 pg (25-35); MEAN CORPUSCULAR HGB CONC 33 g/dL (31-37); MEAN CORPUSCULAR VOLUME 90 fL (79-100); MONO # 0.5 x10^3/uL (0.0-1.1); MONO % 8 % (0-9); NEUT # 3.8 x10^3/uL (1.8-7.7); NEUT % 63 % (31-73); PLATELET COUNT 249 x10^3/uL (140-400); RED BLOOD COUNT 4.18 x10^6/uL (3.50-5.40); RED CELL DISTRIBUTION WIDTH 13.4 % (11.5-14.5); WHITE BLOOD COUNT 6.1 x10^3/uL (4.0-11.0)
[2021-02-26 12:58] LABS: CALCIUM 9.5 mg/dL (8.5-10.1); CREATININE 2.9 mg/dL (0.6-1.0); GFR 18.8; MAGNESIUM 2.6 mg/dL (1.8-2.4)
--- NOTE | 2021-02-26 13:18 | RAD ---
Single view of the chest. 02/26/2021 12:53 PM Indication: Reason: cardiomyopathy, syncope blood work 12:40 Comparison: Chest radiograph February 21, 2021 Findings: Significant improvement in interstitial and basilar infiltrates in the interim. Mild left b asilar scarring or atelectasis persists. Cardiomegaly persists. No pneumothorax or pleural effusion i s seen. No acute osseous changes are identified. IMPRESSION: Improved interstitial and basilar infiltrates in the interim. No evidence of acute cardio pulmonary process is seen Electronically signed by: Speedy Reilly MD (02/26/2021 1:15 PM) [id number]
--- NOTE | 2021-02-26 13:52 | EKG ---
[facility] [address] [place] [address] Test Date: 2021-02-26 Test Time: 12:16:40 Pat Name: NORRIS ASHFORD Department: Room: Gender: [employer] Operator: : [id number] Requested By: SERENA MALDONADO Order Number: [id number] Reading MD: Arturo Rosales Measurements Intervals [place] Rate: 67 P: 47 [place]: 128 QRS: 26 QRSD: 88 T: -56 QT: 428 QTc: 455 Interpretive Statements SINUS RHYTHM T WAVE ABNORMALITY IN THE ANTEROLATERAL LEADS, POSSIBLE ISCHEMIA Electronically Signed On 03-05-2021 11:32:55 MATCH MARKER by Arturo Rosales
[2021-02-26 15:10] VITALS: BP 122/81
== END 2021-02-26 15:23 | disposition home or self-care (01) ==
LOC: ER 12:07
DX: R55 Syncope and collapse (principal); E11.22 Type 2 diabetes mellitus with diabetic chronic kidney disease; I13.0 Hypertensive heart and chronic kidney disease with heart failure and stage 1 through stage 4 chronic kidney disease, or unspecified chronic kidney disease; N18.9 Chronic kidney disease, unspecified; I50.9 Heart failure, unspecified; F17.200 Nicotine dependence, unspecified, uncomplicated
CPT/HCPCS: 36415; 71045; 80048; 82962; 83735; 83880; 84484; 85025; 93005; 99283-25; 99284-25